=== PATIENT | female | born 1945 | race Caucasian/White ===

== ENCOUNTER 2018-01-04 17:48 | Observation (INO) | payer MEDICARE ==
[~2018-01-04] VITALS: Ht 152.4 cm; Wt 70.3 kg
[~2018-01-04 17:48] MED LIST: ASPIRIN325 MG PO; BACLOFEN10 MG PO; DEXILANT60 MG PO; DYCLONINE HCL5 GM PO; ESTRADIOL0.5 MG PO; ESTRADIOL2 MG PO; HYDROCODON-ACE1 EAC9 PO; LYRICA50 MG PO; MECLIZINE HCL12.5 MG PO; MELOXICAM7.5 MG PO; METOPROLOL TART25 MG PO; OMEPRAZOLE20 M1 PO; TIZANIDINE HCL4 MG PO; ULTRAM 50MG50 MG PO; ULTRAM50 MG PO; ZOFRAN ODT4 MG PO
[2018-01-04] MEDS ORDERED: ASPIRIN 81 MG CHEW TAB PO ONE (18:30)
[2018-01-04 18:58] LABS: BASOPHILS % 0.4 % (0.0-1.0); EOSINOPHILS # (AUTO) 0.2 (0.0-0.4); EOSINOPHILS % 3.2 % (0.0-6.0); HEMATOCRIT 34.1 % (34.2-44.1); HEMOGLOBIN 11.1 g/dL (12.0-16.0); LYMPHOCYTES # (AUTO) 2.3 (1.0-3.2); LYMPHOCYTES % 33.8 % (18.0-39.1); MEAN CORPUSCULAR HEMOGLOBIN 29.5 pg (28-32); MEAN CORPUSCULAR HGB CONC 32.6 g/dL (31-35); MEAN CORPUSCULAR VOLUME 90.7 fL (81-99); MONOCYTES # (AUTO) 0.5 (0.2-0.8); MONOCYTES % 7.7 % (4.4-11.3); NEUTROPHILS # (AUTO) 3.8 (2.1-6.9); NEUTROPHILS % 54.6 % (38.7-80.0); PLATELET COUNT 237 x10e3/uL (140-360); RED BLOOD COUNT 3.76 x10e6/uL (3.6-5.1); RED CELL DISTRIBUTION WIDTH 16.8 % (11.7-14.4)
[2018-01-04 19:04] LABS: INR 1.08; PROTHROMBIN TIME 13.2 seconds (11.9-14.5)
[2018-01-04 19:05] LABS: PARTIAL THROMBOPLASTIN TIME 28.1 seconds (23.8-35.5)
[2018-01-04 19:14] LABS: ALANINE AMINOTRANSFERASE 14 IU/L (0-55); ALBUMIN 3.4 g/dL (3.5-5.0); ALBUMIN/GLOBULIN RATIO 1.1 (0.8-2.0); ALKALINE PHOSPHATASE 78 IU/L (40-150); AMYLASE 29 U/L (25-125); ANION GAP 13.6 mmol/L (8-16); BLOOD UREA NITROGEN 10 mg/dL (7-26); BUN/CREATININE RATIO 15 (6-25); CALCIUM 9.5 mg/dL (8.4-10.2); CARBON DIOXIDE 23 mmol/L (22-29); CHLORIDE 107 mmol/L (98-107); CREATINE KINASE 76 IU/L (29-168); CREATININE, SERUM 0.65 mg/dL (0.57-1.11); EST GLOMERULAR FILTRATION RATE > 60 ML/MIN (60-); GLUCOSE 79 mg/dL (74-118); LIPASE 16 U/L (8-78); POTASSIUM 3.6 mmol/L (3.5-5.1); SODIUM 140 mmol/L (136-145)
--- NOTE | 2018-01-04 19:16 | Diagnostic Imaging Report ---
CHEST SINGLE (PORTABLE), 01/04/2018 6:14 PM Technique: CHEST SINGLE (PORTABLE) Comparison: 09/27/2016 Clinical history: Chest pain Findings: Limited by portable technique and soft tissue attenuation. Stable appearance of the heart, mediastinum, lungs and pleural spaces. Impression: 1. Lines/Tubes: None 2. No acute abnormality. Signed by: Dr Jacinda Rainey MD on 01/04/2018 7:13 PM
[2018-01-04 20:00] VITALS: BP 155/70
[2018-01-04 20:32] LABS: BILIRUBIN,URINE NEGATIVE (NEGATIVE); CLARITY,URINE HAZY (CLEAR); COLOR,URINE YELLOW (YELLOW); KETONES,URINE NEGATIVE (NEGATIVE); LEUKOCYTE ESTERASE ,URINE NEGATIVE (NEGATIVE); NITRITE,URINE NEGATIVE (NEGATIVE); PROTEIN,URINE DIPSTICK NEGATIVE (NEGATIVE); URINE UROBILINOGEN 0.2 mg/dL (0.2 - 1)
[2018-01-04 20:40] LABS: BACTERIA,URINE FEW /HPF; EPITHELIAL CELLS,URINE MODERATE /LPF; RBC,URINE 0-5 /HPF (0-5); WBC,URINE (MAN) 0-5 /HPF (0-5)
[2018-01-04 22:00] VITALS: BP 155/70
[2018-01-05] VITALS: BP 137/62
[2018-01-05 04:00] VITALS: BP 142/63
[2018-01-05] MEDS: ONDANSETRON HCL 4 MG ORAL DISINTEGRATING TAB PO ONE (04:07)
[2018-01-05 07:47] VITALS: BP 146/67
[2018-01-05] MEDS: ASPIRIN 81 MG ENTERIC COATED PO SCH (09:03)
[2018-01-05 11:31] VITALS: BP 189/80
[2018-01-05] MEDS ORDERED: METOPROLOL TARTRATE INJ 1 MG/ML VIAL IV ONE (13:00)
[2018-01-05 15:38] VITALS: BP 158/74
--- NOTE | 2018-01-05 16:47 | Consultation ---
DATE OF CONSULTATION: January 05, 2018 CARDIOLOGY CONSULTATION REQUESTING PHYSICIAN: Dr Salbador Biswas. REASON FOR CONSULTATION: Chest pain. HISTORY OF PRESENT ILLNESS: This is a 72-year-old woman with history of lupus as well as aortic stenosis, who presents with complaints of chest pain. She is unable to fully describe the chest discomfort but states she began having a different sensation in her chest yesterday around noon that was associated with lightheadedness and tingling in her hands. There was no shortness of breath, nausea, or diaphoresis. The discomfort lasted hours and was 5/10 in severity. She presented to the ER for further evaluation. REVIEW OF SYSTEMS: Negative except as per HPI. PAST MEDICAL HISTORY 1. Lupus. 2. Aortic stenosis. 3. Fibromyalgia. PAST SURGICAL HISTORY 1. Tonsillectomy. 2. Hysterectomy. 3. Appendectomy. 4. Cholecystectomy. 5. Right knee surgery. ALLERGIES: PLEASE SEE EMR. MEDICATIONS: Please see medication list. SOCIAL HISTORY: Denies tobacco, alcohol, or illicit drugs. FAMILY HISTORY: Noncontributory. PHYSICAL EXAMINATION VITALS: Temperature 96.8 degrees, pulse 69, respiratory rate 19, blood pressure 146/67, oxygen saturation 96% on room air. GENERAL: Elderly woman. No acute distress. Well developed, well nourished. Extensive healing ecchymosis across the left face. NECK: Supple. No thyromegaly or cervical lymphadenopathy. No carotid bruits. LUNGS: Clear to auscultation bilaterally. No wheezes or crackles. CARDIOVASCULAR: Normal rate. Regular rhythm. Systolic murmur III/ is noted at the upper sternal borders with radiation to the carotids. ABDOMEN: Soft, nontender. EXTREMITIES: No edema. NEUROLOGIC: Nonfocal exam. LABS: WBC 6.87, hemoglobin 11.1, hematocrit 34.1, platelets 237, sodium 140, potassium 3.6, chloride 107, CO2 23, BUN 10, creatinine 0.65, troponin 0.13. EKG: Marked sinus bradycardia; inferior infarct, age undetermined; cannot rule out anterior infarct, age undetermined; ST and T wave abnormality, consider a lateral ischemia. CHEST X-RAY: No acute abnormality. IMPRESSION 1. Chest pain. 2. Aortic stenosis. 3. Lupus. RECOMMENDATIONS: Trend cardiac enzymes to rule out myocardial infarction. We will obtain echocardiogram to severity of aortic stenosis, ischemic evaluation with nuclear stress test. Unfortunately, patient had caffeine this morning and will not be able to undergo pharmacologic stress testing until tomorrow. Due to recent fall, patient is not a good candidate for treadmill stress. If she is found to have severe aortic stenosis on echocardiogram, she will need cardiac catheterization instead, as concerned her chest pain and lightheadedness may be from symptomatic aortic stenosis. In the meantime, continue home cardiac medications, check orthostatic vitals. Thank you for this consult. We will continue to follow. Job#: [id number] LPA
[2018-01-05] MEDS ORDERED: CLONIDINE HCL 0.1 MG TAB PO PRN (19:15)
[2018-01-05 20:00] VITALS: BP 191/85
[2018-01-05] MEDS ORDERED: ONDANSETRON HCL INJ 2 MG/ML VIAL IV PRN (22:45)
[2018-01-06] VITALS (11 sets, daily range): BP systolic 119–160; BP diastolic 58–71
[2018-01-06] MEDS ORDERED: HEPARIN SOD/SOD CHLORIDE 2,000 ML ONE (07:23)
[2018-01-06] MEDS ORDERED: FENTANYL CITRATE/PF 100MCG/2 ML INJ ONE (07:23)
[2018-01-06] MEDS ORDERED: LIDOCAINE HCL 2% LOCAL 20 ML VIAL ONE (07:23)
[2018-01-06] MEDS ORDERED: VERAPAMIL HCL 2.5 MG/ML 2 ML VIAL ONE (07:23)
[2018-01-06] MEDS ORDERED: HEPARIN SOD (PORCINE) 1000 UNIT/ML 30ML ONE (07:23)
[2018-01-06] MEDS ORDERED: MIDAZOLAM HCL 2 MG/2 ML VIAL ONE (07:23)
[2018-01-06] MEDS ORDERED: SODIUM CHLORIDE 0.9% 1000ML 1,000 ML ONE (07:24)
[2018-01-06] MEDS ORDERED: IOPAMIDOL 370 MG/ML 200 ML INFUS..BTL INJ ONE (07:24)
[2018-01-06] MEDS ORDERED: NITROGLYCERIN/D5W 200 MCG/ML 250 ML ONE (07:24)
--- NOTE | 2018-01-06 09:26 | Operative Report ---
DATE OF PROCEDURE: January 06, 2018 PROCEDURE: Cardiac catheterization. INDICATIONS FOR PROCEDURE: Chest pain and aortic stenosis. PRE-SEDATION ASSESSMENT: Medical history, social history and previous experience with anesthesia was reviewed with the patient and documented in the preoperative medical record. Results of the relevant diagnostic studies were reviewed. Planned choice of anesthesia, risks, complications, benefits, and alternatives were discussed. The patient was deemed an appropriate candidate for moderate sedation. CONSENT: The benefits, risks, complications, and alternatives to the procedure were discussed with the patient and informed consent was obtained from prior to the procedure. MEDICATIONS: Please see nursing notes for medications administered during the procedure. PROCEDURE: The patient was brought to the cardiac catheterization laboratory in a fasting state. The right wrist was prepped and draped in a sterile fashion. One percent lidocaine was used to infiltrate the right wrist over the right radial artery. A 6-Lao sheath was placed in the right radial artery using the Seldinger technique. Coronary angiography was performed using a Perri and JR4 preformed diagnostic catheters. Multiple orthogonal views were obtained for each coronary artery. All catheters were removed over a guidewire. The access site was closed using a TR band. The case ended without any complications. Estimated blood loss was 20 mL. FINDINGS: Left main coronary artery is short and large caliber and normal. LAD is a large vessel and goes to the apex. No significant coronary artery disease. Left circumflex very large, codominant circumflex. Several large OM branches and distal posterolateral branches. Luminal irregularities only. RCA is codominant RCA. Medium sized RPDA distally. No significant coronary artery disease. COMPLICATIONS: None. SPECIMEN REMOVED: None. IMPLANTS: None. ESTIMATED BLOOD LOSS: 20 mL. RECOMMENDATIONS 1. Usual post cath care until TR band removal. 2. Continue optimal medical therapy and risk factor control. 3. Follow up in the office in 2 weeks post procedure. Thank you for this procedure consult. Job#: [id number] [place]
--- NOTE | 2018-01-06 10:04 | Progress Note ---
DATE: January 06, 2018 CARDIOLOGY PROGRESS NOTE SUBJECTIVE: No major events overnight. Had a cardiac cath done by me this morning, showed no significant coronary artery disease. REVIEW OF SYSTEMS: As above, otherwise negative. OBJECTIVE: VITAL SIGNS: Temperature 97.1, pulse 72, respiratory rate 18, blood pressure 137/61, satting 97% on room air. GENERAL: Thin, frail-appearing elderly female, in no acute distress. CARDIOVASCULAR: PMI nondisplaced, but sustained regular rate, normal rhythm. Normal S1, diminished S2. 2/6 systolic murmur radiating to the carotids. Weak carotid upstroke. Palpable radial pulses. Palpable femoral pulses. Palpable pedal pulses. No lower extremity edema or ulcerations. LUNGS: Clear to auscultation bilaterally. No respiratory distress. ABDOMEN: Soft, nontender, nondistended. No masses. NEURO AND PSYCH: Patient is alert and oriented to person, place, and time. Normal affect. LABORATORY DATA: Reviewed. CURRENT IN-PATIENT MEDICATIONS: Reviewed. IMAGING DATA: Reviewed. TELEMETRY DATA: Reviewed, shows normal sinus rhythm. ASSESSMENT AND PLAN: 1. Chest pain. 2. Aortic stenosis. 3. Lupus. 4. Malnutrition. RECOMMENDATIONS: Patient ruled out for myocardial infarction with serial cardiac enzymes and EKGs. Echocardiogram shows significant aortic stenosis. Cardiac catheterization done this morning as evaluation for coronary artery disease and planning for possible aortic valve replacement as well as for risk stratification of her chest pain, no significant coronary artery disease was found. Euvolemic from a cardiovascular standpoint. Will discuss with patient her options regarding aortic valve replacement. She will likely be a better candidate for transcatheter aortic valve replacement rather than surgical aortic valve replacement given her comorbidities and malnutrition. Thank you for this consult. Will continue to follow. Job#: [id number]
[2018-01-06] MEDS: ASPIRIN 81 MG ENTERIC COATED PO SCH (11:00)
== END 2018-01-06 18:02 | disposition home or self-care (01) ==
LOC: ER 17:48 → IMCU 19:58
PROVIDERS: ADMIT Internal Medicine; ATTEND Internal Medicine
DX: I35.0 Nonrheumatic aortic (valve) stenosis (principal); R07.89 Other chest pain; M32.9 Systemic lupus erythematosus, unspecified; I10 Essential (primary) hypertension; K21.9 Gastro-esophageal reflux disease without esophagitis; M79.7 Fibromyalgia; Z91.81 History of falling; E46 Unspecified protein-calorie malnutrition; Z82.49 Family history of ischemic heart disease and other diseases of the circulatory system
CPT/HCPCS: 36415 ×2; 71045; 80053; 81001; 82150; 82550; 82553; 83690; 83880; 84484 ×2; 85025; 85610; 85730; 87086; 93005; 93306; 93454; 99284; G0378 ×3; J1644; J2001; J2250; J2405; J7030; Q9967

== ENCOUNTER → 2018-04-09 | Day surgery (SDC) | payer MEDICARE ==
[2018-04-08 11:31] LABS: BASOPHILS % 0.7 % (0.0-1.0); EOSINOPHILS # (AUTO) 0.3 (0.0-0.4); EOSINOPHILS % 5.2 % (0.0-6.0); HEMATOCRIT 34.2 % (34.2-44.1); LYMPHOCYTES # (AUTO) 1.9 (1.0-3.2); LYMPHOCYTES % 30.9 % (18.0-39.1); MEAN CORPUSCULAR HEMOGLOBIN 29.1 pg (28-32); MEAN CORPUSCULAR HGB CONC 32.2 g/dL (31-35); MEAN CORPUSCULAR VOLUME 90.5 fL (81-99); MONOCYTES # (AUTO) 0.4 (0.2-0.8); MONOCYTES % 6.4 % (4.4-11.3); NEUTROPHILS # (AUTO) 3.5 (2.1-6.9); NEUTROPHILS % 56.6 % (38.7-80.0); PLATELET COUNT 250 x10e3/uL (140-360); RED BLOOD COUNT 3.78 x10e6/uL (3.6-5.1); RED CELL DISTRIBUTION WIDTH 13.7 % (11.7-14.4)
[2018-04-08 11:49] LABS: INR 0.92; PROTHROMBIN TIME 13.2 seconds (11.9-14.5)
[2018-04-08 11:59] LABS: ALANINE AMINOTRANSFERASE 14 IU/L (0-55); ALBUMIN 3.5 g/dL (3.5-5.0); ALKALINE PHOSPHATASE 83 IU/L (40-150); BLOOD UREA NITROGEN 14 mg/dL (7-26); BUN/CREATININE RATIO 19 (6-25); CALCIUM 9.7 mg/dL (8.4-10.2); CARBON DIOXIDE 24 mmol/L (22-29); CHLORIDE 104 mmol/L (98-107); CREATININE, SERUM 0.72 mg/dL (0.57-1.11); EST GLOMERULAR FILTRATION RATE > 60 ML/MIN (60-); GLUCOSE 122 mg/dL (74-118); SODIUM 138 mmol/L (136-145)
[~2018-04-09] VITALS: Ht 162.6 cm; Wt 68.0 kg
[2018-04-09] VITALS (7 sets, daily range): BP systolic 144–172; BP diastolic 64–86
[~2018-04-09] MED LIST changes: +BENZOCAINE 20% SPR 60 ML CAN ONE; +ETOMIDATE 2 MG/ML 10 ML INJ IV ONE; +FENTANYL CITRATE/PF 100MCG/2 ML INJ ONE; +IBUPROFEN200 MG PO; +KCL; +METOCLOPRAMIDE HCL 10 MG/2ML VIAL ONE; +SODIUM CHLORIDE 0.9% 1000ML 1,000 ML ONE; +[UNRECOGNIZED DRUG - OTHER]
== END | disposition home or self-care (01) ==
LOC: CATH LAB 09:39
PROVIDERS: ATTEND Internal Medicine
DX: I35.0 Nonrheumatic aortic (valve) stenosis (principal); I35.1 Nonrheumatic aortic (valve) insufficiency; I10 Essential (primary) hypertension; R00.2 Palpitations; M32.9 Systemic lupus erythematosus, unspecified; M79.7 Fibromyalgia; G89.29 Other chronic pain; Z88.1 Allergy status to other antibiotic agents; Z01.812 Encounter for preprocedural laboratory examination; Z79.82 Long term (current) use of aspirin; Z82.49 Family history of ischemic heart disease and other diseases of the circulatory system
CPT/HCPCS: 36415; 80053; 85025; 85610; 93312; 93320; 93325; J2765; J7030

== ENCOUNTER 2019-04-05 11:02 | Observation (INO) | payer MEDICARE ==
[~2019-04-05] VITALS: Ht 149.9 cm; Wt 68.0 kg
[~2019-04-05 11:02] MED LIST changes: -BENZOCAINE 20% SPR 60 ML CAN ONE; -ETOMIDATE 2 MG/ML 10 ML INJ IV ONE; -FENTANYL CITRATE/PF 100MCG/2 ML INJ ONE; -METOCLOPRAMIDE HCL 10 MG/2ML VIAL ONE; -SODIUM CHLORIDE 0.9% 1000ML 1,000 ML ONE
[2019-04-05] MEDS ORDERED: SODIUM CHLORIDE 0.9% 1000ML 1,000 ML IV STA (11:35)
[2019-04-05 12:21] LABS: BASOPHILS % 0.2 % (0.0-1.0); EOSINOPHILS # (AUTO) 0.1 (0.0-0.4); EOSINOPHILS % 0.3 % (0.0-6.0); LYMPHOCYTES # (AUTO) 0.9 (1.0-3.2); LYMPHOCYTES % 5.1 % (18.0-39.1); MEAN CORPUSCULAR HEMOGLOBIN 28.1 pg (28-32); MEAN CORPUSCULAR HGB CONC 32.4 g/dL (31-35); MEAN CORPUSCULAR VOLUME 86.7 fL (81-99); MONOCYTES # (AUTO) 0.9 (0.2-0.8); NEUTROPHILS % 88.2 % (38.7-80.0); PLATELET COUNT 242 x10e3/uL (140-360); RED BLOOD COUNT 3.92 x10e6/uL (3.6-5.1); RED CELL DISTRIBUTION WIDTH 17.1 % (11.7-14.4)
[2019-04-05 12:32] LABS: INR 1.05; PARTIAL THROMBOPLASTIN TIME 32.6 seconds (23.8-35.5); PROTHROMBIN TIME 14.2 seconds (11.9-14.5)
--- NOTE | 2019-04-05 12:39 | Diagnostic Imaging Report ---
CT BRAIN WO HISTORY: Fall COMPARISON: Report from head CT dated 09/27/2016 Technique: Noncontrast axial scans were obtained from skull base to the vertex. Coronal and sagittal reconstructions obtained from the axial data. One or more of the following dose reduction techniques were used: Automated exposure control, adjustment of the mA and/or kV according to patient size, and/or utilization of iterative reconstruction technique. Beam hardening artifacts obscure some details. DISCUSSION: Scalp/Skull: Unremarkable. Brain sulci: Mildly prominent. Ventricles: Compensatory dilatation. Extra-axial spaces: No masses or fluid collections. Carotid siphon calcifications are present. Parenchyma: Moderate bilateral deep white matter hypodensity is likely chronic microvascular ischemic change. Otherwise, no masses, hemorrhage, or large vascular territory acute infarct. Dural sinuses: No abnormal densities. Sellar/Suprasellar region: Intact. Skull base: Intact. Incidental findings: None. IMPRESSION: 1. No acute intracranial abnormalities. 2. Moderate supratentorial chronic microvascular ischemic change. Mild generalized cerebral volume loss. Signed by: Dr. Wily Ruffin M.D. on 04/05/2019 12:36 PM
[2019-04-05 12:42] LABS: ALANINE AMINOTRANSFERASE 13 IU/L (0-55); ALBUMIN 3.2 g/dL (3.5-5.0); ALBUMIN/GLOBULIN RATIO 0.9 (0.8-2.0); ALKALINE PHOSPHATASE 82 IU/L (40-150); ANION GAP 16.3 mmol/L (8-16); BLOOD UREA NITROGEN 26 mg/dL (7-26); BUN/CREATININE RATIO 30 (6-25); CALCIUM 9.7 mg/dL (8.4-10.2); CARBON DIOXIDE 23 mmol/L (22-29); CHLORIDE 95 mmol/L (98-107); CREATINE KINASE 113 IU/L (29-168); CREATININE, SERUM 0.88 mg/dL (0.57-1.11); EST GLOMERULAR FILTRATION RATE > 60 ML/MIN (60-); GLUCOSE 114 mg/dL (74-118); MAGNESIUM 1.9 MG/DL (1.3-2.1); POTASSIUM 3.3 mmol/L (3.5-5.1); SODIUM 131 mmol/L (136-145)
--- NOTE | 2019-04-05 12:45 | Diagnostic Imaging Report ---
CT CERVICAL SPINE WO HISTORY: Fall COMPARISON: Concurrent head CT TECHNIQUE: CT of the cervical spine without contrast. Sagittal and coronal reformations were created. One or more of the following dose reduction techniques were used: Automated exposure control, adjustment of the mA and/or kV according to patient size, and/or utilization of iterative reconstruction technique. FINDINGS: Mild bone demineralization limits osseous evaluation. Cervical lordosis is preserved. There is no significant scoliosis. No definite acute fracture or compression deformity is seen. The craniocervical junction is intact. No gross spinal canal masses are seen. The paravertebral and paraspinal soft tissues are unremarkable. Degenerative changes: Mild to moderate multilevel spondylosis is present. Multilevel bilateral facet arthrosis is most prominent on the left C3-C4 and C4-C5; there is associated grade 1 anterolisthesis of C6 on C7. Incidental findings: There is nonspecific mild mosaic attenuation in the lung apices. IMPRESSION: No acute osseous abnormalities. Degenerative changes as described above. Signed by: Dr. Wily Ruffin M.D. on 04/05/2019 12:41 PM
--- NOTE | 2019-04-05 12:59 | Diagnostic Imaging Report ---
AP view the pelvis Clinical indications: Fall, pain Comparison: None Findings: 2 AP radiographs of the pelvis were obtained. There is no radiographic evidence of acute fracture or dislocation. Mild narrowing of the bilateral hip joints. Calcified densities overlying the pelvis are likely phleboliths. Impression: No radiographic evidence of acute fracture or dislocation. Signed by: Prabhjot Chen MD on 04/05/2019 12:55 PM
--- NOTE | 2019-04-05 13:01 | Diagnostic Imaging Report ---
Chest, portable AP view History: All, pain Comparison: 01/04/2018 IMPRESSION: The heart is within normal limits size. The mediastinal and hilar contours are unremarkable. No focal consolidation, sizable pleural effusion, pneumothorax, or acute osseous abnormality. Signed by: Prabhjot Chen MD on 04/05/2019 12:57 PM
--- NOTE | 2019-04-05 13:02 | NUR ---
Patient is on Purewick per patient's request
[2019-04-05 13:10] LABS: B-TYPE NATRIURETIC PEPTIDE2 133.9 pg/mL (0-100)
[2019-04-05 14:30] LABS: BILIRUBIN,URINE NEGATIVE (NEGATIVE); KETONES,URINE TRACE (NEGATIVE); NITRITE,URINE POSITIVE (NEGATIVE); PROTEIN,URINE DIPSTICK 2+ (NEGATIVE); URINE UROBILINOGEN 0.2 mg/dL (0.2 - 1)
[2019-04-05 14:31] LABS: CLARITY,URINE SL CLOUDY (CLEAR); COLOR,URINE YELLOW (YELLOW); LEUKOCYTE ESTERASE ,URINE NEGATIVE (NEGATIVE)
[2019-04-05 14:45] LABS: BACTERIA,URINE MANY /HPF; EPITHELIAL CELLS,URINE MANY /LPF; TRANSITIONAL EPI CELLS,URINE MODERATE; WBC,URINE (MAN) 0-5 /HPF (0-5)
[2019-04-05] MEDS ORDERED: ONDANSETRON HCL INJ 2MG/ML 2ML 2 MG/ML VIAL IV PRN (14:45)
[2019-04-05] MEDS ORDERED: SODIUM CHLORIDE 0.9% 500ML 500 ML IV ONE (14:45)
[2019-04-05] MEDS: CEFTRIAXONE SOD 1 GM/NS 50 ML 50 ML IV SCH (16:35)
[2019-04-05] MEDS: SODIUM CHLORIDE 0.9% 1000ML 1,000 ML IV SCH ×2 (17:59→23:33)
[2019-04-05 20:13] LABS: CREATINE KINASE MB 0.9 ng/mL (0-5.0)
--- NOTE | 2019-04-05 21:36 | NUR ---
Received patient from ER, alert, with IV access to bilateral AC 18g, rat bite noted on the patient's nose per report, ecchymosis to the left ear and multiple bruising with different color and stages, redness to the groin, ki area and buttocks noted. Cleaned patient with warm wipes and hooked to purewick per request. Call light within easy reach, advised to call for assistance anytime. Will continue to monitor closely
[2019-04-05 21:40] VITALS: BP 136/52
[2019-04-05 22:00] VITALS: BP 136/52
[2019-04-06] MEDS: CEFTRIAXONE SOD 1 GM/NS 50 ML 50 ML IV SCH ×2 (02:17→14:30)
[2019-04-06 05:28] LABS: BASOPHILS % 0.1 % (0.0-1.0); EOSINOPHILS # (AUTO) 0.1 (0.0-0.4); EOSINOPHILS % 0.4 % (0.0-6.0); HEMATOCRIT 26.2 % (34.2-44.1); HEMOGLOBIN 8.1 g/dL (12.0-16.0); LYMPHOCYTES # (AUTO) 1.3 (1.0-3.2); LYMPHOCYTES % 11.4 % (18.0-39.1); MEAN CORPUSCULAR HEMOGLOBIN 27.5 pg (28-32); MEAN CORPUSCULAR HGB CONC 30.9 g/dL (31-35); MEAN CORPUSCULAR VOLUME 88.8 fL (81-99); MONOCYTES # (AUTO) 0.8 (0.2-0.8); MONOCYTES % 6.6 % (4.4-11.3); NEUTROPHILS # (AUTO) 9.3 (2.1-6.9); NEUTROPHILS % 80.2 % (38.7-80.0); PLATELET COUNT 188 x10e3/uL (140-360); RED BLOOD COUNT 2.95 x10e6/uL (3.6-5.1); RED CELL DISTRIBUTION WIDTH 17.1 % (11.7-14.4)
[2019-04-06 05:49] LABS: ALANINE AMINOTRANSFERASE 10 IU/L (0-55); ALBUMIN 2.4 g/dL (3.5-5.0); ALBUMIN/GLOBULIN RATIO 0.9 (0.8-2.0); ALKALINE PHOSPHATASE 69 IU/L (40-150); ANION GAP 12.2 mmol/L (8-16); BLOOD UREA NITROGEN 13 mg/dL (7-26); BUN/CREATININE RATIO 21 (6-25); CALCIUM 8.3 mg/dL (8.4-10.2); CARBON DIOXIDE 21 mmol/L (22-29); CHLORIDE 105 mmol/L (98-107); CREATININE, SERUM 0.61 mg/dL (0.57-1.11); EST GLOMERULAR FILTRATION RATE > 60 ML/MIN (60-); GLUCOSE 89 mg/dL (74-118); POTASSIUM 3.2 mmol/L (3.5-5.1); SODIUM 135 mmol/L (136-145)
[2019-04-06] MEDS: PANTOPRAZOLE SOD 40 MG TABEC PO SCH (05:54)
[2019-04-06 06:38] LABS: CREATINE KINASE MB 0.7 ng/mL (0-5.0)
--- NOTE | 2019-04-06 07:10 | NUR ---
Received patient lying in bed with eyes open. Respiration even and unlabored without SOB. Call light in reach.
[2019-04-06] MEDS ORDERED: LISINOPRIL10 MG PO (07:16)
[2019-04-06] MEDS ORDERED: AMIODARONE HCL200 MG PO (07:16)
[2019-04-06 08:03] VITALS: BP 128/61
[2019-04-06] MEDS: METOPROLOL TARTRATE 25 MG TAB PO SCH ×2 (08:33→16:57)
[2019-04-06] MEDS: ASPIRIN 325 MG TAB PO SCH (08:33)
[2019-04-06] MEDS: PREGABALIN 50 MG CAP PO SCH ×4 (08:34→18:18)
[2019-04-06 09:45] VITALS: BP 128/61
--- NOTE | 2019-04-06 10:17 | NUR ---
Paged Dr. Biswas. States okay to have PT eval.
[2019-04-06 12:00] VITALS: BP 112/57
[2019-04-06] MEDS: KETOROLAC TROMETHAMINE 30 MG/ML VIAL IM PRN ×2 (13:16→21:17)
--- NOTE | 2019-04-06 15:10 | NUR ---
Visit made by the Spiritual Care Department Pastoral Visitor, Vinita Mueller. PV provided pastoral presence, prayer, hospitality, and supportive listening. Pastoral Visitor informed pt/family of the scope of Director Internal Audit Services and availability. NEFTALI DONALDSON [employer] Spiritual Care Department O: [phone] Pager: [phone] ([phone] number calling from)
[2019-04-06 16:00] VITALS: BP 136/62
[2019-04-06] MEDS ORDERED: ACETAMINOPHEN 325 MG TAB PO PRN (18:45)
[2019-04-06] MEDS: POTASSIUM CHLORIDE 20 MEQ TAB CR PO SCH (18:53)
--- NOTE | 2019-04-06 18:55 | NUR ---
Report given to rn shift mgr. Respiration even and unlabored without SOB. Call light in reach.
[2019-04-06 19:24] VITALS: BP 136/62
[2019-04-06 20:00] VITALS: BP 141/59
[2019-04-07] VITALS: BP 150/64
[2019-04-07 00:05] VITALS: BP 141/59
[2019-04-07] MEDS: CEFTRIAXONE SOD 1 GM/NS 50 ML 50 ML IV SCH (02:15)
[2019-04-07 04:00] VITALS: BP 139/63
[2019-04-07] MEDS: PANTOPRAZOLE SOD 40 MG TABEC PO SCH (05:00)
[2019-04-07] MEDS: KETOROLAC TROMETHAMINE 30 MG/ML VIAL IM PRN (05:06)
[2019-04-07 05:34] LABS: BASOPHILS % 0.5 % (0.0-1.0); EOSINOPHILS # (AUTO) 0.4 (0.0-0.4); HEMATOCRIT 28.4 % (34.2-44.1); LYMPHOCYTES # (AUTO) 1.3 (1.0-3.2); LYMPHOCYTES % 16.9 % (18.0-39.1); MEAN CORPUSCULAR HEMOGLOBIN 27.7 pg (28-32); MEAN CORPUSCULAR HGB CONC 31.7 g/dL (31-35); MEAN CORPUSCULAR VOLUME 87.4 fL (81-99); MONOCYTES # (AUTO) 0.5 (0.2-0.8); MONOCYTES % 6.7 % (4.4-11.3); NEUTROPHILS # (AUTO) 5.3 (2.1-6.9); NEUTROPHILS % 70.2 % (38.7-80.0); PLATELET COUNT 211 x10e3/uL (140-360); RED BLOOD COUNT 3.25 x10e6/uL (3.6-5.1); RED CELL DISTRIBUTION WIDTH 16.7 % (11.7-14.4)
[2019-04-07 06:10] LABS: ALANINE AMINOTRANSFERASE 9 IU/L (0-55); ALBUMIN 2.5 g/dL (3.5-5.0); ALBUMIN/GLOBULIN RATIO 0.8 (0.8-2.0); ALKALINE PHOSPHATASE 61 IU/L (40-150); ANION GAP 11.7 mmol/L (8-16); BLOOD UREA NITROGEN 18 mg/dL (7-26); BUN/CREATININE RATIO 28 (6-25); CALCIUM 8.6 mg/dL (8.4-10.2); CARBON DIOXIDE 21 mmol/L (22-29); CHLORIDE 107 mmol/L (98-107); CREATININE, SERUM 0.64 mg/dL (0.57-1.11); EST GLOMERULAR FILTRATION RATE > 60 ML/MIN (60-); GLUCOSE 86 mg/dL (74-118); POTASSIUM 3.7 mmol/L (3.5-5.1); SODIUM 136 mmol/L (136-145)
[2019-04-07 07:47] VITALS: BP 132/58
[2019-04-07 08:55] VITALS: BP 132/58
[2019-04-07] MEDS: PREGABALIN 50 MG CAP PO SCH ×2 (09:00→09:25)
--- NOTE | 2019-04-07 09:02 | NUR ---
PT recommending home health. CM received order from Dr. Biswas to set up home health if pt is agreeable. CM spoke to pt at bedside. Pt states she doesn't want home health at this time. States her son is available to assist her if needed. CM informed her that her PCP can also set up home health for her if she feels like she needs it at a later time. Pt verbalized understanding. CM business card left with pt for any questions/concerns.
[2019-04-07] MEDS: ASPIRIN 325 MG TAB PO SCH (09:24)
[2019-04-07] MEDS: METOPROLOL TARTRATE 25 MG TAB PO SCH (09:25)
[2019-04-07] MEDS: POTASSIUM CHLORIDE 20 MEQ TAB CR PO SCH (09:25)
[2019-04-07] MEDS ORDERED: MACRODANTIN100 MG PO (14:24)
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
== END 2019-04-07 15:00 | disposition home or self-care (01) ==
LOC: ER 11:02 → ERHOLD 15:01 → MED/SURG2 22:01
PROVIDERS: ADMIT Internal Medicine; ATTEND Internal Medicine
DX: N39.0 Urinary tract infection, site not specified (principal); M32.9 Systemic lupus erythematosus, unspecified; I10 Essential (primary) hypertension; E66.9 Obesity, unspecified; Z68.30 Body mass index [BMI] 30.0-30.9, adult
CPT/HCPCS: 36415 ×3; 70450; 71045; 72125; 72170; 80053 ×3; 81001; 82550 ×2; 82553 ×2; 83605; 83735 ×2; 83880; 84484 ×2; 85025 ×3; 85610; 85730; 87040; 87071; 87086; 87186; 87205; 87400; 93005; 97116 ×2; 97139 ×2; 97162; 99285; G0378 ×3; J0696 ×3; J1885 ×2; J7030; S0164 ×2

== ENCOUNTER 2020-01-04 16:28 | Emergency (ER) | payer MEDICARE ==
[~2020-01-04] VITALS: Ht 271.8 cm; Wt 68.0 kg
[~2020-01-04 16:28] MED LIST changes: +AMIODARONE HCL200 MG PO; +LISINOPRIL10 MG PO; +MACRODANTIN100 MG PO
[2020-01-04] MEDS ORDERED: SODIUM CHLORIDE 0.9% 1000ML 1,000 ML IV STA (16:53)
[2020-01-04 17:04] LABS: BASOPHILS % 0.8 % (0.0-1.0); EOSINOPHILS # (AUTO) 0.2 (0.0-0.4); EOSINOPHILS % 3.3 % (0.0-6.0); HEMATOCRIT 29.9 % (34.2-44.1); LYMPHOCYTES # (AUTO) 1.3 (1.0-3.2); LYMPHOCYTES % 25.8 % (18.0-39.1); MEAN CORPUSCULAR HEMOGLOBIN 24.8 pg (28-32); MEAN CORPUSCULAR HGB CONC 30.1 g/dL (31-35); MEAN CORPUSCULAR VOLUME 82.4 fL (81-99); MONOCYTES # (AUTO) 0.4 (0.2-0.8); MONOCYTES % 8.5 % (4.4-11.3); NEUTROPHILS # (AUTO) 3.2 (2.1-6.9); NEUTROPHILS % 61.4 % (38.7-80.0); PLATELET COUNT 221 x10e3/uL (140-360); RED BLOOD COUNT 3.63 x10e6/uL (3.6-5.1); RED CELL DISTRIBUTION WIDTH 20.2 % (11.7-14.4)
[2020-01-04 17:07] LABS: INR 0.94
[2020-01-04 17:08] LABS: PARTIAL THROMBOPLASTIN TIME 28.4 seconds (23.8-35.5)
[2020-01-04 17:16] LABS: BILIRUBIN,URINE NEGATIVE (NEGATIVE); CLARITY,URINE CLEAR (CLEAR); COLOR,URINE YELLOW (YELLOW); KETONES,URINE NEGATIVE (NEGATIVE); LEUKOCYTE ESTERASE ,URINE NEGATIVE (NEGATIVE); NITRITE,URINE NEGATIVE (NEGATIVE); PROTEIN,URINE DIPSTICK NEGATIVE (NEGATIVE); URINE UROBILINOGEN 0.2 mg/dL (0.2 - 1)
[2020-01-04 17:17] LABS: ALANINE AMINOTRANSFERASE 18 IU/L (0-55); ALBUMIN 4.2 g/dL (3.5-5.0); ALBUMIN/GLOBULIN RATIO 1.5 (0.8-2.0); ALKALINE PHOSPHATASE 66 IU/L (40-150); ANION GAP 17.1 mmol/L (8-16); BLOOD UREA NITROGEN 8 mg/dL (7-26); BUN/CREATININE RATIO 10 (6-25); CALCIUM 8.8 mg/dL (8.4-10.2); CARBON DIOXIDE 17 mmol/L (22-29); CHLORIDE 108 mmol/L (98-107); CREATINE KINASE 105 IU/L (29-168); CREATININE, SERUM 0.82 mg/dL (0.57-1.11); EST GLOMERULAR FILTRATION RATE > 60 ML/MIN (60-); GLUCOSE 80 mg/dL (74-118); POTASSIUM 4.1 mmol/L (3.5-5.1); SODIUM 138 mmol/L (136-145)
[2020-01-04 17:30] LABS: BACTERIA,URINE RARE /HPF; WBC,URINE (MAN) 0-5 /HPF (0-5)
--- NOTE | 2020-01-04 17:38 | Diagnostic Imaging Report ---
History: Confusion Comparison studies: Head CT on 04/05/2019 Technique: Axial images were obtained from the skull base to the vertex. Coronal and sagittal images reconstructed from the axial data. Dose modulation, iterative reconstruction, and/or weight based adjustment of the mA/kV was utilized to reduce the radiation dose to as low as reasonably achievable. Intravenous contrast: None Findings: Scalp/skull: No abnormalities. Extra-axial spaces: No masses. No fluid collections. Brain sulci: Mildly prominent. Ventricles: Mild compensatory dilatation. No hydrocephalus. Parenchyma: Confluent hypodensities in the supratentorial white matter are small vessel ischemic changes. No masses, hemorrhage, acute or chronic cortical vascular insults. Sellar/suprasellar region: No abnormalities. Craniocervical junction: Patent foramen magnum. No Chiari one malformation. Incidental findings: Subtle calcifications in the carotid siphons . Impression: No acute intracranial abnormalities. No changes when compared to the head CT on 04/05/2019 Chronic findings: 1. Mild generalized volume loss. 2. Moderate supratentorial white matter small vessel ischemic changes. Signed by: Dr. Julian Odell M.D. on 01/04/2020 5:35 PM
--- NOTE | 2020-01-04 17:53 | Emergency Department Note ---
History of Present Illnes History of Present Illness Chief Complaint: General Medicine Complaints History of Present Illness This is a 74 year old female Pt aaox4. From home. Son told ems pt was confused earlier today. Pt completely aware of all surrounding and past events from today. Pt gave detailed information about Dr. Biswas's weekly schedules. H/O FIBROMYALGIA, TAKES A LOT OF MEDS Historian: Patient, Device Repair Technician/EMS Arrival Mode: [facility] Treatment CONSOLE ATTENDANT: See EMS Report Senior Director Finance Required: No Onset (how long ago): hour(s) Radiation: Reports non-radiation Severity: mild Onset quality: sudden Timing of current episode: sporadic Progression: resolved Chronicity: recurrent Context: Denies recent illness Relieving factors: none Exacerbating factors: none Associated symptoms: Reports denies other symptoms Treatments prior to arrival: none Past Medical/Family History Physician Review I have reviewed the patient's past medical and family history. Any updates have been documented here. Past Medical History Recent Fever: No Clinical Suspicion of Infectio: No New/Unexplained Change in Ment: No Past Medical History: Hypertension, CHF, GERD, Lupus Other Medical History: fibromyalgia, aortic stenosis, hiatal hernia Past Surgical History: Cholecysctectomy Other Surgery: right knee surgery Social History Smoking Cessation: Unknown if ever smoked Counseling Performed: No Alcohol Use: None Any Illegal Drug Use: No TB Exposure/Symptoms: No Physically hurt or threatened: No Other Last Tetanus: UTD Any Pre-Existing Lines (PICC,: No Review of Systems Review of Systems Constitutional: Reports no symptoms EENTM: Reports no symptoms Cardiovascular: Reports no symptoms Respiratory: Reports no symptoms Gastrointestinal: Reports no symptoms Genitourinary: Reports no symptoms Musculoskeletal: Reports no symptoms Integumentary: Reports no symptoms Neurological: Reports as per HPI Psychological: Reports no symptoms Endocrine: Reports no symptoms Hematological/Lymphatic: Reports no symptoms Physical Exam Related Data Allergies: Coded Allergies: levofloxacin (Verified Allergy, Intermediate, FACIAL RASH / ITCHING, 01/04/18) Triage Vital Signs Vital Signs Date Time Temp Pulse Resp B/P (MAP) Pulse Ox O2 Delivery O2 Flow Rate FiO2 01/04/20 16:47 98.4 43 12 188/52 98 Room Air Vital signs reviewed: Yes Physical Exam CONSTITUTIONAL Constitutional: Present other (DISSHEVELED) HENT HENT: Present normocephalic, Present atraumatic, Present oropharynx clear/moist, Present nose normal HENT L/R: Present left ext ear normal, Present right ext ear normal EYES Eyes: Reports PERRL, Reports conjunctivae normal NECK Neck: Present ROM normal PULMONARY Pulmonary: Present effort normal, Present breath sounds normal CARDIOVASCULAR Cardiovascular: Present regular rhythm, Present heart sounds normal, Present capillary refill normal, Present normal rate GASTROINTESTINAL Abdominal: Present soft, Present nontender, Present bowel sounds normal GENITOURINARY Genitourinary: Present exam deferred SKIN Skin: Present warm, Present dry MUSCULOSKELETAL Musculoskeletal: Present ROM normal NEUROLOGICAL Neurological: Present alert, Present oriented x 3, Present DTRs normal, Present no gross motor or sensory deficits; Absent cranial nerve deficit, Absent sensory deficit, Absent weakness PSYCHOLOGICAL Psychological: Present mood/affect normal, Present judgement normal Results Laboratory Result Diagram: 01/04/20 1640 01/04/20 1640 Laboratory Laboratory Tests Test 01/04/20 17:03 01/04/20 16:40 Urine Color Yellow (YELLOW) Urine Clarity Clear (CLEAR) Urine pH 6 (5 - 7) Urine Specific [place] 1.015 (1.010-1.025) Urine Protein Negative (NEGATIVE) Urine Glucose (UA) Negative (NEGATIVE) Urine Ketones Negative (NEGATIVE) Urine Blood Negative (NEGATIVE) Urine Nitrite Negative (NEGATIVE) Urine Bilirubin Negative (NEGATIVE) Urine Urobilinogen 0.2 mg/dL (0.2 - 1) Urine Leukocyte Esterase Negative (NEGATIVE) Urine RBC None /HPF (0-5) Urine WBC 0-5 /HPF (0-5) Urine Epithelial Cells None /LPF (NONE) Urine Bacteria Rare /HPF (NONE) White Blood Count 5.20 x10e3/uL (4.8-10.8) Red Blood Count 3.63 x10e6/uL (3.6-5.1) Hemoglobin 9.0 g/dL (12.0-16.0) Hematocrit 29.9 % (34.2-44.1) Mean Corpuscular Volume 82.4 fL (81-99) Mean Corpuscular Hemoglobin 24.8 pg (28-32) Mean Corpuscular Hemoglobin Concent 30.1 g/dL (31-35) Red Cell Distribution Width 20.2 % (11.7-14.4) Platelet Count 221 x10e3/uL (140-360) Neutrophils (%) (Auto) 61.4 % (38.7-80.0) Lymphocytes (%) (Auto) 25.8 % (18.0-39.1) Monocytes (%) (Auto) 8.5 % (4.4-11.3) Eosinophils (%) (Auto) 3.3 % (0.0-6.0) Basophils (%) (Auto) 0.8 % (0.0-1.0) Neutrophils # (Auto) 3.2 (2.1-6.9) Lymphocytes # (Auto) 1.3 (1.0-3.2) Monocytes # (Auto) 0.4 (0.2-0.8) Eosinophils # (Auto) 0.2 (0.0-0.4) Basophils # (Auto) 0.0 (0.0-0.1) Absolute Immature Granulocyte (auto 0.01 x10e3/uL (0-0.1) Prothrombin Time 13.0 seconds (11.9-14.5) Prothromb Time International Ratio 0.94 Activated Partial Thromboplast Time 28.4 seconds (23.8-35.5) Sodium Level 138 mmol/L (136-145) Potassium Level 4.1 mmol/L (3.5-5.1) Chloride Level 108 mmol/L (98-107) Carbon Dioxide Level 17 mmol/L (22-29) Anion Gap 17.1 mmol/L (8-16) Blood Urea Nitrogen 8 mg/dL (7-26) Creatinine 0.82 mg/dL (0.57-1.11) Estimat Glomerular Filtration Rate > 60 ML/MIN (60-) BUN/Creatinine Ratio 10 (6-25) Glucose Level 80 mg/dL (74-118) Calcium Level 8.8 mg/dL (8.4-10.2) Total Bilirubin 0.3 mg/dL (0.2-1.2) Aspartate Amino Transf (AST/SGOT) 28 IU/L (5-34) Alanine Aminotransferase (ALT/SGPT) 18 IU/L (0-55) Alkaline Phosphatase 66 IU/L (40-150) Creatine Kinase 105 IU/L (29-168) Creatine Kinase MB 1.90 ng/mL (0-5.0) Troponin I 0.002 ng/mL (0-0.300) Total Protein 7.0 g/dL (6.5-8.1) Albumin 4.2 g/dL (3.5-5.0) Globulin 2.8 g/dL (2.3-3.5) Albumin/Globulin Ratio 1.5 (0.8-2.0) Lab results reviewed: Yes Imaging Imaging results reviewed: Yes Impressions History: Confusion Comparison studies: Head CT on 04/05/2019 Technique: Axial images were obtained from the skull base to the vertex. Coronal and sagittal images reconstructed from the axial data. Dose modulation, iterative reconstruction, and/or weight based adjustment of the mA/kV was utilized to reduce the radiation dose to as low as reasonably achievable. Intravenous contrast: None Findings: Scalp/skull: No abnormalities. Extra-axial spaces: No masses. No fluid collections. Brain sulci: Mildly prominent. Ventricles: Mild compensatory dilatation. No hydrocephalus. Parenchyma: Confluent hypodensities in the supratentorial white matter are small vessel ischemic changes. No masses, hemorrhage, acute or chronic cortical vascular insults. Sellar/suprasellar region: No abnormalities. Craniocervical junction: Patent foramen magnum. No Chiari one malformation. Incidental findings: Subtle calcifications in the carotid siphons . Impression: No acute intracranial abnormalities. No changes when compared to the head CT on 04/05/2019 Chronic findings: 1. Mild generalized volume loss. 2. Moderate supratentorial white matter small vessel ischemic changes. Signed by: Dr. Julian Odell M.D. on 01/04/2020 5:35 PM Procedures 12 Lead ECG Interpretation ECG Interpretation : ECG: ECG 1 Senior Director Finance: Interpreted by ED physician Date: Jan 04, 2020 Time: 16:36 Rhythm: sinus bradycardia Rate: bradycardia (45) QRS axis: left ST segments normal: Yes T wave inversion: III T waves flattening: aVF, V3, V4 Clinical Impression: abnormal ECG Assessment & Plan Medical Decision Making MDM REPORTED AMS, PT COMPLETELY NORMAL HERE, NORMAL NEURO EXAM - CHECK CBC, CHEM, UA/CX, ECG, CARDIACS, CT BRAIN - R/O CVA, UTI, ELECTROLYTE ABNL, RENAL INSUFF, STEMI/NSTEMI Reassessment Reassessment PT WANTS TO GO HOME, DC HOME, F/U PCP JESSICA TOMORROW, PUSH PO FLUIDS Assessment & Plan Final Impression: (1) Confusion Depart Disposition: HOME, SELF-CARE Last Vital Signs Date Time Temp Pulse Resp B/P (MAP) Pulse Ox O2 Delivery O2 Flow Rate FiO2 01/04/20 16:47 98.4 43 12 188/52 98 Room Air Home Meds Reported Medications Nitrofurantoin Macrocrystal (MACRODANTIN) 100 Mg Capsule, 100 MG PO BID, CAP 04/07/19 Lisinopril (LISINOPRIL) 10 Mg Tablet, 10 MG PO DAILY, #30 TAB 04/06/19 Amiodarone Hcl (AMIODARONE HCL) 200 Mg Tablet, 200 MG PO DAILY 04/06/19 [kcl er] No Conflict Check, 20 DAILY 04/09/18 [vitamen E] No Conflict Check, 1000 04/09/18 Ibuprofen (IBUPROFEN) 200 Mg Capsule, 600 MG PO BID for pain, TAB 04/09/18 Tramadol Hcl (ULTRAM) 50 Mg Tablet, 100 MG PO Q12H PRN for PAIN, TAB 09/28/16 Pregabalin (LYRICA) 50 Mg Cap, 100 MG PO BID for pain, #30 TAB 09/28/16 Dyclonine Hcl (DYCLONINE HCL) 5 Gm Powder, 10 MG PO TID PRN for ABDOMINAL PAIN, #2 09/28/16 Baclofen (BACLOFEN) 10 Mg Tablet, 10 MG PO TID for muscle relaxation, #90 TAB 03/02/14 Ondansetron (ZOFRAN ODT) 4 Mg Tab.rapdis, 4 MG PO Q6H for nausea prn, TAB 03/02/14 Meloxicam (MELOXICAM) 7.5 Mg Tablet, 15 MG PO DAILY for pain, #30 TAB 03/02/14 Aspirin (ASPIRIN) 325 Mg Tablet, 650 MG PO DAILY for pain, #1 TAB 02/06/14 Omeprazole (OMEPRAZOLE) 20 Mg Tablet.dr, 1 TAB PO RDAILY for stomach acid 08/25/13 Metoprolol Tartrate (METOPROLOL TARTRATE) 25 Mg Tablet, 100 MG PO BID for bp control 08/25/13 Medications in the ED Sodium Chloride 1,000 ml @ 0 mls/hr Q0M STAT IV Last administered on 01/04/20at 17:06; Admin Dose 250 MLS/HR; Start 01/04/20 at 16:53; Stop 01/04/20 at 16:56; Status DC JERALD BARNARD MD Jan 04, 2020 17:53
--- OUTSIDE RECORDS SUMMARY | 2020-01-04 17:58 | XMS REPORT | Continuity of Care Document ---
Author Author [facility] t Organization [facility] t Address [address] [place] [address] Phone Unavailable Care Team Providers Care Legal Word Processor Name Role Phone SALBADOR LOPEZ MD PCP Yoselyn BARNARD Attphys Unavailable Christiano LUND Attphys Unavailable Payers Payer Name Policy Type Policy Number Effective Date Expiration Date S ource Problems Condition Name Condition Details Condition Category Status Onset Date Resolution Date Last Treatment Date Treating Clinician Comments Source Confusion Confusion Problem Active 2014-03-02 00:00:00 [facility] Dehydration Dehydration Problem Active 2014-03-02 00:00:00 [facility] Weakness Weak Problem Active 2014-03-02 00:00:00 [facility] Chest pain Chest pain Problem Active [facility] Multiple gallstones Gall stones Problem Active [facility] Fall Fall Problem Active [facility] Urinary tract infection UTI (urinary tract infection) Problem Active [facility] Allergies, Adverse Reactions, Alerts Allergy Name Allergy Type Status Severity Reaction(s) Onset Date Inacti ve Date Treating Clinician Comments Source No Known Allergies DA Active U 2018-08-14 00:00:00 [facility] Penicillins DA Active U 2018-08-14 00:00:00 [facility] levofloxacin DA Active U 2018-08-14 00:00:00 [facility] Levofloxacin Allergy to Substance Active Moderate FACIAL RASH / ITCHING 2018-01-04 00:00:00 [facility] levofloxacin DA Active [place] 2017-12-26 00:00:00 [facility] Medications Ordered Medication Name Filled Medication Name Start Date Stop Da te Current Medication? Ordering Clinician Indication Dosage Frequency Signature (SIG) Comments Components Source Amiodarone Hcl 200 Mg Tablet Amiodarone Hcl 200 Mg Tablet Y es 200 Daily [facility] Aspirin 325 Mg Tablet Aspirin 325 Mg Tablet Yes 650 Daily for Pain [facility] Baclofen 10 Mg Tablet Baclofen 10 Mg Tablet Yes 10 Three Times A Day for Muscle Relaxation [facility] Dyclonine Hcl 5 Gm Powder Dyclonine Hcl 5 Gm Powder Yes 10 Three Times A Day as needed for Abdominal Pain [facility] Ibuprofen 200 Mg Capsule Ibuprofen 200 Mg Capsule Yes 600 Twice A Day for Pain [facility] Kcl Er Kcl Er Yes 20 Daily [facility] Lisinopril 10 Mg Tablet Lisinopril 10 Mg Tablet Yes 10 Daily [facility] Meloxicam 7.5 Mg Tablet Meloxicam 7.5 Mg Tablet Yes 15 Daily for Pain [facility] Metoprolol Tartrate 25 Mg Tablet Metoprolol Tartrate 25 Mg Tablet Yes 100 Twice A Day for Bp Control C HI [facility] Nitrofurantoin Macrocrystal (Macrodantin) 100 Mg Capsu le Nitrofurantoin Macrocrystal (Macrodantin) 100 Mg Capsule Yes 100 Twice A Day [facility] Omeprazole 20 Mg Tablet. Omeprazole 20 Mg Tablet. Yes 1 Rt Daily for Stomach Acid [facility] Ondansetron (Zofran Odt) 4 Mg Tab.rapdis Ondansetron ( Zofran Odt) 4 Mg Tab.rapdis Yes 4 Every 6 Hours for Nausea Pr n [facility] Pregabalin (Lyrica) 50 Mg Cap Pregabalin (Lyrica) 50 Mg Cap Yes 100 Twice A Day for Pain [facility] Tramadol Hcl (Ultram) 50 Mg Tablet Tramadol Hcl (Ultram) 50 Mg Tablet Yes 100 Every 12 Hours as needed for Pain [facility] Vitamen E Vitamen E Yes 1000 [facility] Dexlansoprazole (Dexilant) 60 Mg Cap., 60 Mg Oral Dexlansoprazole (Dexilant) 60 Mg Cap., 60 Mg Oral 2018-01-04 00:00:00 No 60 Daily [facility] Estradiol 2 Mg Tablet, 2 Mg Oral Estradiol 2 Mg Tablet, 2 Mg Ora l 2018-01-04 00:00:00 No 2 Daily [facility] Meclizine Hcl 12.5 Mg Tablet, 12.5 Mg Oral Meclizine H cl 12.5 Mg Tablet, 12.5 Mg Oral 2018-01-04 00:00:00 No 12.5 Twice A Day as needed for Dizziness [facility] Tizanidine Hcl 4 Mg Tablet, 4 Mg Oral Tizanidine Hcl 4 Mg Tablet , 4 Mg Oral 2018-01-04 00:00:00 No 4 Daily [facility] Pregabalin (Lyrica) 50 Mg Cap, 200 Mg Oral Pregabalin (Lyrica) 50 Mg Cap, 200 Mg Oral 2014-03-04 00:00:00 No 200 Three Times A Day [facility] Hydrocodone Bit/Acetaminophen (Hydrocodo n-Acetaminophn 10-325) 1 Each Tablet, 1 Tab Oral Hydrocodone Bit/Acetaminophen (Hydrocodo n-Acetaminophn 10-325) 1 Each Tablet, 1 Tab Oral 2014-03-02 00:00:00 No 1 Every 4-6 Hours Prn [facility] Metoprolol Tartrate 25 Mg Tablet, 1 Tab Oral Metoprolo l Tartrate 25 Mg Tablet, 1 Tab Oral 2014-03-02 00:00:00 No 1 Afternoons [facility] Metoprolol Tartrate 25 Mg Tablet, 1 Tab Oral Metoprolo l Tartrate 25 Mg Tablet, 1 Tab Oral 2014-03-02 00:00:00 No 1 Bedtime [facility] Estradiol 0.5 Mg Tablet, 1 Tab Oral Estradiol 0.5 Mg Tablet, 1 T ab Oral 2014-02-06 00:00:00 No 1 Rt Daily [facility] Procedures Procedure Date / Time Performed Performing Clinician [facility] e Computed tomography of brain without radiopaque contrast 201 01-07-09 00:00:00 EVONJERALD Yoselyn [facility] Computed tomography of cervical spine without contrast 04-05 00:00:[address] [facility] Encounters Start Date/Time End Date/Time Encounter Type Admission Type [facility] Care Department Encounter ID Source 2019-06-11 13:36:21 Outpatient [facility] CAR [id number] [facility] 2019-01-29 05:54:00 Inpatient [facility] CAR [id number] [facility] 2019-04-05 15:01:00 2019-04-07 15:00:00 Discharged Inpatient (obs) 1 JERALD BARNARD [facility] [id number] [facility] 2019-03-29 14:14:00 2019-03-29 14:14:00 Outpatient [facility] CAR [id number] [facility] 2019-01-07 10:32:00 2019-01-07 10:32:00 Outpatient [facility] CAR [id number] [facility] 2019-01-07 08:35:00 2019-01-07 08:35:00 Outpatient [facility] CAR [id number] [facility] 2018-12-08 12:40:00 2018-12-08 12:40:00 Outpatient [facility] CAR [id number] [facility] 2018-01-04 19:58:00 2018-01-06 18:02:00 Discharged Inpatient (obs) 1 LASHAWN LUND [facility] [id number] [facility] Results Test Description Test Time Test Comments Results Result Comments Source CT BRAIN WO 2020-01-04 17:33:00 [place] [address] Patient Name: TIA GARG MR #: [id number] : 1945 Age/Sex: 74/F Req #: [id number] Adm Physician: Ordered by: JERALD BARNARD MD Report #: [id number] Location: ER Room/Bed: Procedure: [id number] CT/CT BRAIN WO Exam Date: 01/04/20 Exam Time: 1710 REPORT STATUS: Signed History: Confusion Comparison studies: Head CT on 04/05/2019 Technique: Axial images were obtained from the skull base to the vertex. Coronal and sagittal images reconstructed from the axial data. Dose modulation, iterative reconstruction, and/or weight based adjustment of the mA/kV was utilized to reduce the radiation dose to as low as reasonably achievable. Intravenous contrast: None Findings: Scalp/skull: No abnormalities. Extra-axial spaces: No masses. No fluid collections. Brain sulci: Mildly prominent. Ventricles: Mild compensatory dilatation. No hydrocephalus. Parenchyma: Confluent hypodensities in the supratentorial white matter are small vessel ischemic changes. No masses, hemorrhage, acute or chronic cortical vascular insults. Sellar/suprasellar region: No abnormalities. Craniocervical junction: Patent foramen magnum. No Chiari one malformation. Incidental findings: Subtle calcifications in the carotid siphons . Impression: No acute intracranial abnormalities. No changes when compared to the head CT on 04/05/2019 Chronic findings: 1. Mild generalized volume loss. 2. Moderate supratentorial white matter small vessel ischemic changes. Signed by: Dr. Julian Ross M.D. on 01/04/2020 5:35 PM Dictated By: JULIAN ROSS MD, MD 34 Transcribed By: NHI on 01/04/201734 COPY TO: JERALD BARNARD MD Blood Culture 2019-04-07 12:13:00 Test Item Blood Culture (test code = 98861681) NO GROWTH AFTER 48 HOURS [facility] CenterUrine Aufyqtx8164-83-66 08:48:00* Test Item Value Reference Range Interpretation Comments Urine Culture (test code = 630-4) No Result Data [facility]ided [facility] [id number] 06:12:00* Test Item Value Reference Range Interpretation Comments Sodium Level (test code = 2951-2) 136 136-145 [facility]Potassium Atxza8629-95-07 06:12:00* Test Item Value Reference Range Interpretation Comments Potassium Level (test code = 2823-3) 3.7 3.5-5.1 [facility] CenterChloride Dkhgp2208-68-62 06:12:00* Test Item Value Reference Range Interpretation Comments Chloride Level (test code = 2075-0) 107 98-107 [facility] CenterCarbon Dioxide Hcufb3621-95-30 06:12:00* Test Item Value Reference Range Interpretation Comments Carbon Dioxide Level (test code = 2028-9) 21 22-29 L [facility] CenterAnion Vjr1619-80-56 06:12:00* Test Item Value Reference Range Interpretation Comments Anion Gap (test code = 06278-2) 11.7 8-16 [facility] CenterBlood Urea Faviwhsx6261-20-36 06:12:00* Test Item Value Reference Range Interpretation Comments Blood Urea Nitrogen (test code = 3094-0) 18 7-26 [facility] CenterCreatinine2019-12-11 06:12:00* Test Item Value Reference Range Interpretation Comments Creatinine (test code = 2160-0) 0.64 0.57-1.11 [facility] CenterBUN/Creatinine Huhin6720-09-02 06:12:00* Test Item Value Reference Range Interpretation Comments BUN/Creatinine Ratio (test code = 3097-3) 28 6-25 H [facility] CenterEstimat Glomerular Filtration Rate 2019-04-07 06:12:00* Test Item Value Reference Range Interpretation Comments Estimat Glomerular Filtration Rate (test code = 790252331) > 60 >60 Ranges were taken from the National Kidney Disease Education Program and the Critical access hospital Kidney Foundation literature.Reference ranges:60 or greater: Nayiol93-64 ( for 3 consecutive months): Chronic kidney disease 15 or less: Kidney failureThe [facility] at [facility] CenterGlucose Hgtab8047-22-46 06:12:00* Test Item Value Reference Range Interpretation Comments Glucose Level (test code = RSK6269) 86 74-118 [facility] CenterCalcium Bswqd1468-55-04 06:12:00* Test Item Value Reference Range Interpretation Comments Calcium Level (test code = 21519-2) 8.6 8.4-10.2 [facility] CenterTotal Ofirpoyds0418-43-05 06:12:00* Test Item Value Reference Range Interpretation Comments Total Bilirubin (test code = 1975-2) 0.2 0.2-1.2 [facility] CenterAspartate Amino Transf (AST/SGOT) 2019-04-07 06:12:00* Test Item Value Reference Range Interpretation Comments Aspartate Amino Transf (AST/SGOT) (test code = Aspartate Amino Transf (AST/SGOT)) 11 5-34 [facility] CenterAlanine Aminotransferase (ALT/SGPT) 2019-04-07 06:12:00* Test Item Value Reference Range Interpretation Comments Alanine Aminotransferase (ALT/SGPT) (test code = 1742-6) 9 0-55 [facility] CenterTotal Zafmxvf4343-70-35 06:12:00* Test Item Value Reference Range Interpretation Comments Total Protein (test code = 2885-2) 5.5 6.5-8.1 L [facility] CenterAlbumin2019-12-11 06:12:00* Test Item Value Reference Range Interpretation Comments Albumin (test code = 1751-7) 2.5 3.5-5.0 L [facility] CenterGlobulin2019-12-11 06:12:00* Test Item Value Reference Range Interpretation Comments Globulin (test code = 44330-2) 3.0 2.3-3.5 [facility] CenterAlbumin/Globulin Ptmpi2209-82-69 06:12:00 * Test Item Value Reference Range Interpretation Comments Albumin/Globulin Ratio (test code = 1759-0) 0.8 0.8-2.0 [facility] CenterAlkaline Zewhsjdbmau1162-20-69 06:12:00* Test Item Value Reference Range Interpretation Comments Alkaline Phosphatase (test code = 6768-6) 61 40-150 [facility] CenterWhite Blood Ijsav6169-68-30 05:50:00* Test Item Value Reference Range Interpretation Comments White Blood Count (test code = 6690-2) 7.47 4.8-10.8 [facility] CenterRed Blood Otlzz0457-73-03 05:50:00* Test Item Value Reference Range Interpretation Comments Red Blood Count (test code = 789-8) 3.25 3.6-5.1 L [facility] CenterHemoglobin2019-12-11 05:50:00* Test Item Value Reference Range Interpretation Comments Hemoglobin (test code = 84301-8) 9.0 12.0-16.0 L [facility] CenterHematocrit2019-12-11 05:50:00* Test Item Value Reference Range Interpretation Comments Hematocrit (test code = 4544-3) 28.4 34.2-44.1 L [facility] CenterMean Corpuscular Jcpali9942-04-05 05:50:00* Test Item Value Reference Range Interpretation Comments Mean Corpuscular Volume (test code = 787-2) 87.4 81-99 [facility] CenterMean Corpuscular Bainrwezfo0869-58-40 05:50:00* Test Item Value Reference Range Interpretation Comments Mean Corpuscular Hemoglobin (test code = 785-6) 27.7 28-32 L [facility] CenterMean Corpuscular Hemoglobin Concent 2019-04-07 05:50:00* Test Item Value Reference Range Interpretation Comments Mean Corpuscular Hemoglobin Concent (test code = 786-4) 31.7 31-35 [facility] CenterRed Cell Distribution Bhzca9179-07-67 05:50:00* Test Item Value Reference Range Interpretation Comments Red Cell Distribution Width (test code = 77599-8) 16.7 11.7 -14.4 H [facility] CenterPlatelet Vcytg2811-80-28 05:50:00* Test Item Value Reference Range Interpretation Comments Platelet Count (test code = 777-3) 211 140-360 [facility] CenterNeutrophils (%) (Auto)2019-04-07 05:50:00 * Test Item Value Reference Range Interpretation Comments Neutrophils (%) (Auto) (test code = 73351-5) 70.2 38.7-80.0 [facility] CenterLymphocytes (%) (Auto)2019-04-07 05:50:00 * Test Item Value Reference Range Interpretation Comments Lymphocytes (%) (Auto) (test code = 736-9) 16.9 18.0-39.1 L [facility] CenterMonocytes (%) (Auto)2019-04-07 05:50:00* Test Item Value Reference Range Interpretation Comments Monocytes (%) (Auto) (test code = 5905-5) 6.7 4.4-11.3 [facility] CenterEosinophils (%) (Auto)2019-04-07 05:50:00 * Test Item Value Reference Range Interpretation Comments Eosinophils (%) (Auto) (test code = 713-8) 5.0 0.0-6.0 [facility] CenterBasophils (%) (Auto)2019-04-07 05:50:00* Test Item Value Reference Range Interpretation Comments Basophils (%) (Auto) (test code = 706-2) 0.5 0.0-1.0 [facility] CenterIM GRANULOCYTES %2019-04-07 05:50:00* Test Item Value Reference Range Interpretation Comments IM GRANULOCYTES % (test code = IM GRANULOCYTES %) 0.7 0.0- 1.0 [facility] CenterNeutrophils # (Auto)2019-04-07 05:50:00* Test Item Value Reference Range Interpretation Comments Neutrophils # (Auto) (test code = 751-8) 5.3 2.1-6.9 [facility] CenterLymphocytes # (Auto)2019-04-07 05:50:00* Test Item Value Reference Range Interpretation Comments Lymphocytes # (Auto) (test code = 97584-7) 1.3 1.0-3.2 [facility] CenterMonocytes # (Auto)2019-04-07 05:50:00* Test Item Value Reference Range Interpretation Comments Monocytes # (Auto) (test code = 742-7) 0.5 0.2-0.8 [facility] CenterEosinophils # (Auto)2019-04-07 05:50:00* Test Item Value Reference Range Interpretation Comments Eosinophils # (Auto) (test code = 711-2) 0.4 0.0-0.4 [facility] CenterBasophils # (Auto)2019-04-07 05:50:00* Test Item Value Reference Range Interpretation Comments Basophils # (Auto) (test code = 704-7) 0.0 0.0-0.1 [facility] CenterAbsolute Immature Granulocyte (auto 2019-04-07 05:50:00* Test Item Value Reference Range Interpretation Comments Absolute Immature Granulocyte (auto (raeann t code = Absolute Immature Granulocyte (auto) 0.05 0-0.1 [facility] CenterCreatine Kinase GS5364-59-96 15:18:00* Test Item Value Reference Range Interpretation Comments Creatine Kinase MB (test code = 37798-4) 1.00 0-5.0 [facility] CenterTroponin [id number] 15:18:00* Test Item Value Reference Range Interpretation Comments Troponin I (test code = ZVF5872) 0.015 0-0.300 [facility] CenterCreatine Eojvql7314-02-34 15:09:00* Test Item Value Reference Range Interpretation Comments Creatine Kinase (test code = 2157-6) 42 29-168 [facility] CenterMagnesium Ionsp4489-32-18 06:37:00* Test Item Value Reference Range Interpretation Comments Magnesium Level (test code = 52710-7) 1.8 1.3-2.1 [facility] CenterInfluenza Virus Types A,B Antigen 2019-04-05 18:22:00* Test Item Value Reference Range Interpretation Comments Influenza Virus Types A,B Antigen (test code = 78464-0) NEGATIVE NEGATIVE [facility] CenterUrine LTJ6739-30-66 14:45:00* Test Item Value Reference Range Interpretation Comments Urine WBC (test code = 5821-4) 0-5 0-5 [facility] CenterUrine CHK5890-85-75 14:45:00* Test Item Value Reference Range Interpretation Comments Urine RBC (test code = 39833-3) 6-10 0-5 H [facility] CenterUrine Mwbiwppi7997-40-81 14:45:00* Test Item Value Reference Range Interpretation Comments Urine Bacteria (test code = 57272-7) MANY NONE H [facility] CenterUrine Epithelial Lgklm7191-52-49 14:45:00 * Test Item Value Reference Range Interpretation Comments Urine Epithelial Cells (test code = 93728-8) MANY NONE [facility] CenterUrine Transitional Epithelial Cells 2019-04-05 14:45:00* Test Item Value Reference Range Interpretation Comments Urine Transitional Epithelial Cells (test code = 8249-5) MODERATE NONE H [facility] CenterUrine Yaeut8496-91-77 14:31:00* Test Item Value Reference Range Interpretation Comments Urine Color (test code = 5778-6) YELLOW YELLOW [facility] CenterUrine Hsalmeu0949-57-07 14:31:00* Test Item Value Reference Range Interpretation Comments Urine Clarity (test code = 75291-6) SL CLOUDY CLEAR [facility] CenterUrine Specific Dfbjwmw7935-10-24 14:31:00 * Test Item Value Reference Range Interpretation Comments Urine Specific [place] (test code = 5811-5) 1.020 1.010-1.02 5 [facility] CenterUrine mO4390-12-91 14:31:00* Test Item Value Reference Range Interpretation Comments Urine pH (test code = 82024-8) 6.5 5-7 [facility] CenterUrine Leukocyte Upnbqcvf8133-92-94 14:31:00* Test Item Value Reference Range Interpretation Comments Urine Leukocyte Esterase (test code = 5799-2) NEGATIVE NEGATIVE [facility] CenterUrine Vaqqumn6908-84-14 14:31:00* Test Item Value Reference Range Interpretation Comments Urine Nitrite (test code = 85329-5) POSITIVE NEGATIVE H [facility] CenterUrine Npltxkm7926-12-73 14:31:00* Test Item Value Reference Range Interpretation Comments Urine Protein (test code = 5804-0) 2+ NEGATIVE H [facility] CenterUrine Glucose (UA)2019-04-05 14:31:00* Test Item Value Reference Range Interpretation Comments Urine Glucose (UA) (test code = 2349-9) NEGATIVE NEGATIVE [facility] CenterUrine Dijmbpf1825-22-87 14:31:00* Test Item Value Reference Range Interpretation Comments Urine Ketones (test code = 11074-9) TRACE NEGATIVE H [facility] CenterUrine Ujktvgitbdvn1095-68-52 14:31:00* Test Item Value Reference Range Interpretation Comments Urine Urobilinogen (test code = 58218-1) 0.2 0.2-1 [facility] CenterUrine Vpmvpnhzt6260-73-15 14:31:00* Test Item Value Reference Range Interpretation Comments Urine Bilirubin (test code = 1978-6) NEGATIVE NEGATIVE [facility] CenterUrine Lwyci6142-60-82 14:31:00* Test Item Value Reference Range Interpretation Comments Urine Blood (test code = 94806-8) TRACE NEGATIVE H [facility] CenterB-Type Natriuretic Hzrmwvz2765-55-32 13:11:00* Test Item Value Reference Range Interpretation Comments B-Type Natriuretic Peptide (test code = 50024-0) 133.9 0-100 H [facility] CenterCHEST SINGLE (PORTABLE)2019-04-05 12:56:00 [place] [address] Patient Name: TIA GARG MR #: [id number] : 1945 Age/Sex: 73/F Req #: [id number] Adm Physician: Ordered by: JERALD BARNARD MD Report #: [id number] Location: ER Room/Bed: Procedure: [id number] DX/ CHEST SINGLE (PORTABLE) Exam Date: Exam Time: REPORT STATUS: Signed Chest, portable AP view History: All, pain Comparison: 01/04/2018 IMPRESSION: The heart is within normal limits size. The mediastinal and hilar contours are unremarkable. No focal consolidation, sizable pleural effusion, pneumothorax, or acute osseous abnormality. Signed by: Prabhjot De La Vega MD on 04/05/2019 12:57 PM Dictated By: PRABHJOT DE LA VEGA MD 1257 Transcribed By: NHI on 04/05/19 1257 COPY TO: JERALD BARNARD MD PELVIS AP 1-2 EQBTS6753-82-08 12:54:00 [place] [address] Patient Name: TIA GARG MR #: [id number] : 1945 Age/Sex: 73/F Req #: [id number] Adm Physician: Ordered by: JERALD BARNARD MD Report #: [id number] Location: ER Room/Bed: Procedure: [id number] DX/ PELVIS AP 1-2 VIEWS Exam Date: Exam Time: REPORT STATUS: Signed AP view the pelvis Clinical indications: Fall, pain Comparison: None Findings: 2 AP radiographs of the pelvis were obtained. There is no radiographic evidence of acute fracture or dislocation. Mild narrowing of the bilateral hip joints. Calcified densities overlying the pelvis are likely phleboliths. Impre ssion: No radiographic evidence of acute fracture or dislocation. Signed by: Prabhjot De La Vega MD on 04/05/2019 12:55 PM Dictated By: PRABHJOT NUÑEZ MD 1255 Transcr ibed By: NHI on 04/05/19 1255 COPY TO: JERALD BARNARD MD Lactic Acid Dtetv9884-31-32 12:48:00* Test Item Value Reference Range Interpretation Comments Lactic Acid Level (test code = Lactic Acid Level) 1.6 0.5- 2.0 [facility] CenterCT CERVICAL SPINE RS1642-99-29 12:36:00 [place] [address] Patient Name: TIA GARG MR #: [id number] : 1945 Age/Sex: 73/F Req #: [id number] Adm Physician: Ordered by: JERALD BARNARD MD Report #: [id number] Location: ER Room/Bed: Procedure: [id number] CT/ CT CERVICAL SPINE WO Exam Date: 04/05/19 Exam Time: 1208 REPORT STATUS: Signed CT CE RVICAL SPINE WO HISTORY: Fall COMPARISON: Concurrent head CT KO HNIQUE: CT of the cervical spine without contrast. Sagittal and coronal refor mations were created. One or more of the following dose reduction techniques were used: Automated exposure control, adjustment of the mA and/or kV accordin g to patient size, and/or utilization of iterative reconstruction technique. FINDINGS: Mild bone demineralization limits osseous evaluation. Cervic al lordosis is preserved. There is no significant scoliosis. No definite acu te fracture or compression deformity is seen. The craniocervical junction is intact. No gross spinal canal masses are seen. The paravertebral and para spinal soft tissues are unremarkable. Degenerative changes: Mild to modera te multilevel spondylosis is present. Multilevel bilateral facet arthrosis is most prominent on the left C3-C4 and C4-C5; there is associated grade 1 navya listhesis of C6 on C7. Incidental findings: There is nonspecific mild mosa ic attenuation in the lung apices. IMPRESSION: No acute osseous abnor malities. Degenerative changes as described above. Signed by: Dr. Wily Chaudhari M.D. on 04/05/2019 12:41 PM Dictated By: WILY RUFFIN MD Elect ronically Signed By: WILY RUFFIN MD on 04/05/19 1241 Transcribed By: DES SELBY on 04/05/19 1241 COPY TO: JERALD BARNARD MD Prothrombin Time 2019-04-05 12:33:00* Test Item Value Reference Range Interpretation Comments Prothrombin Time (test code = 5902-2) 14.2 11.9-14.5 [facility] International Ratio 2019-04-05 12:33:00* Test Item Value Reference Range Interpretation Comments Prothromb Time International Ratio (test code = 6301-6) 1.05 Oral Anticoagulant Therapy INR Values:1. Low Intensity Therapy 1.5 - 2.02 . Moderate Intensity Therapy 2.0 - 3.03. High Intensity Therapy(1) 2.5 - 3. 54. High Intensity Therapy(2) 3.0 - 4.05. Panic Value INR > 5.0 [facility] CenterAct[facility] Partial Thromboplast Time 2019-04-05 12:33:00* Test Item Value Reference Range Interpretation Comments Activated Partial Thromboplast Time (test code = 59385-5) 32.6 23.8-35.5 [facility] CenterCT BRAIN [id number] 12:32:00 [place] [address] Patient Name: TIA GARG MR #: [id number] : 1945 Age/Sex: 73/F Req #: [id number] Adm Physician: Ordered by: JERALD BARNARD MD Report #: [id number] Location: Room/Bed: Procedure: [id number] CT/ CT BRAIN WO Exam Date: 04/05/19 Exam Time: 1208 REPORT STATUS: Signed CT BRAIN WO HISTORY: Fall COMPARISON: Report from head CT dated 09/27/2016 Techn ique: Noncontrast axial scans were obtained from skull base to the vertex. C oronal and sagittal reconstructions obtained from the axial data. One or more of the following dose reduction techniques were used: Automated exposure cont rol, adjustment of the mA and/or kV according to patient size, and/or utilizat ion of iterative reconstruction technique. Beam hardening artifacts obscure so me details. DISCUSSION: Scalp/Skull: Unremarkable. Brain sulci: Mi ldly prominent. Ventricles: Compensatory dilatation. Extra-axial spaces: No masses or fluid collections. Carotid siphon calcifications are present. P arenchyma: Moderate bilateral deep white matter hypodensity is likely chronic microvascular ischemic change. Otherwise, no masses, hemorrhage, or large vascular territory acute infarct. Dural sinuses: No abnormal densities. Sellar/Suprasellar region: Intact. Skull base: Intact. Incidental findings: None. IMPRESSION: 1. No acute intracranial abnormalities. 2. Moderate supratentorial chronic microvascular ischemic change. Mild generalized cerebr al volume loss. Signed by: Dr. Wily Ruffin M.D. on 04/05/2019 12:36 P M Dictated By: WILY RUFFIN MD 1236 Transcribed By: NHI on 04/05/19 1236 COPY T O: JERALD BARNARD MD AB COCCI IMMITIS, [id number] 11:14:00* Test Item Value Reference Range Interpretation Comments AB COCCI IMMITIS, CSF (test code = COCCIIMMCSF) <1:2 INTERPRETIVE INFORMATION: Coccidioides Ab by ComplementFixation (CF) Any titer suggests past or current infection. However,greater than 30 percent of cases with chronic residualpulmonary disease have negative Complement Fixation (CF)tests. Titers of less than 1:32 (even as low as 1:2) mayindicate past infection or self-limited disease;anticoccidiodal CF antibody titers in excess of 1:16 mayindicate di sseminated infection. CF serology may be used tofollow therapy. Antibody in CSF is considered diagnostic forcoccidioidal meningitis, although 10 percent of patientswith coccidioidal meningitis will not have antibody in CSF. Test developed and characteristics determined by [facility]. See Compliance Statement B: [email or web address] COMMENTS: CSFENCEPHALITIS [id number] 11:14:00* Test Item Value Reference Range Interpretation Comments AB ENCEPHALITIS INÉS-IGM (test code = ENCSTMAB) NEGATIVE TITER NEGATIVE SOURCE (test code = SOURCE) CEREBRAL SPINAL FLD AB WEST NILE VIRUS IGM (test code = WESNIABIGM) NEGATIVE Results of Arbovirus IgM TONG serve only as an aid todiagnosis and should be interpreted in relation to thepatient's clinical picture, other diagnostic findings, andepidemiological data. Lack of serological evidence forarbovirus infection may reflect testing of acute phase serumobtained before antibodies are produced. Antibodies toflaviviruses exhibit cross reactivity and their detection islimited in it usefulness in differentiating specificflaviviruses. The test has not been approved or cleared bythe Food and Drug Administration. COMMENTS: CSFAB ECHOVIRUS PANEL [id number] 11:14:00* Test Item Value Reference Range Interpretation Comments AB ECHOVIRUS 9 AB CSF (test code = UIYE8RBYPA) <1:10 < 1:10 AB ECHOVIRUS 11 AB CSF (test code = SAOL75TKWKN) <1:10 < 1:1 0 AB ECHOVIRUS 30 AB CSF (test code = ICSN32QTGEB) <1:10 <1:10 This data was established following evaluation of anormal population withoutany current infection of these echovirus subtypes.The clinical significance and criteria for theinterpretation of Echovirussubtypes 6, 7, 9, 11 and 30 performed on cerebrospinalfluid has not beenestablished.The performance characteristics of the listed assays werevalidated by [employer] ([employer] The US FDA has not approved or clearedthese tests. Theresults of these assays can be used for clinicaldiagnosis without FDA approval.i.TV. is a CLIA certified, CAPaccredited laboratory forperforming high complexity assays such as these.Testing Performed at: [facility] [address] [place], [place] [id number] At: E= [facility] [address] [id number] Thomas J PhD Ph:[phone] AB ECHOVIRUS 7 AB CSF (test code = JZWL7INNJY) <1:10 < 1:10 ECHOVIRUS 6 AB CSF (test code = GVBX3TXX) <1:10 < 1:10 COMMENTS: CSFWEST NILE VIRUS AB PANEL [id number] 11:14:00* Test Item Value Reference Range Interpretation Comments AB WEST NILE VIRUS IGG CSF (test code = WSNIABGCSF) Equivocal Ne gative AB WEST NILE VIRUS IGM CSF (test code = WSNIABMCSF) Negative Ne gative No detectable West Nile Virus IgM Antibody. If a recentinfection is suspected, another specimen should besubmitted for testing within 7-14 days.Performed At: [address] [id number] Caba MD Ph:[phone] COMMENTS: CSFCSF IGG SYNTHESIS [id number] 11:12:00* Test Item Value Reference Range Interpretation Comments CSF ALBUMIN (test code = ALBCSF) 19 mg/dL 11-48 CSF IMMUNOGLOBULIN G (test code = IGGCSF) 1.8 mg/dL 0.0-8.6 CSF IGG INDEX (test code = IGGINCSF) 0.6 0.0-0.7 CSF IGG SYNTHESIS (test code = IGGSYNCSF) 0.1 mg/day 9.9 TO +3.3 CSF IGG/ALBUMIN RATIO (test code = IGGALBCSF) 0.09 0.00-0.2 5 SERUM IMMUNOGLOBULIN G (test code = IGGMS) 535 mg/dL 700-1600 A SERUM ALBUMIN (test code = ALBMS) 3.3 g/dL 3.5-4.8 A SERUM ALBUMIN INDEX (test code = ALBINDMS) 6 0-8 Relationship to blood-brain barrier: Consistent with an intact barrier <9 Slight impairment 9 - 14 Moderate impairment 14 - 30 Severe impairment 30 - 100 Complete breakdown >100Performed At: [facility] [id number] Caba MD Ph:[phone] At: [facility] [id number] Kyle L MD Ph:[phone] COMMENTS: PLEASE USE TUBE #3CSF OLIGOCLONAL BAND [id number] 11:12:00* Test Item Value Reference Range Interpretation Comments CSF OLIGOCLONAL BANDS (test code = OLIGCSF) () Zero (0) oligoclonal bands were observed in the CSF.Interpretation: Criteria for Positivity: Four (4) or more oligoclonalbands observed only in the CSF have been shown to be mostconsistent with MS using our method. [Seema , Deisi, Mame BG, and Daphnie JA: Cerebrospinal FluidOligoclonal Bands in the Diagnosis of Multiple Sclerosis.Am J Clin Pathol 120(5):672-675, 2003]. Oligoclonal bands that are present only in the CSF havebeen associated with a variety of inflammatory braindiseases such as multiple sclerosis (MS), subacuteencephalitis, neurosyphilis, etc. Increased IgG in the CSFis not specific for MS, but is an indication of chronicneural inflammation. Clinical correlation indicated. Approximately 2-3% of clinically confirmed MS patientsshow little or no evidence of oligoclonal bands in theCSF; however oligoclonal bands may develop as the diseaseprogresses. Oligoclonal Banding testing performed using IsoelectricFocusing (IEF) and immunoblotting methodology.Performed At: [facility] [id number] Caba MD Ph:[phone] COMMENTS: PLEASE USE TUBE #3CSF [id number] 11:12:00* Test Item Value Reference Range Interpretation Comments CSF PROTEIN (test code = PROTECSF) 35.4 mg/dL 0.0-44.0 CSF PREALBUMIN % (test code = PREALB%) 5.2 % 2.2-7.1 CSF ALBUMIN % (test code = ALBCSF%) 55.8 % 56.8-76.4 A CSF HEIRO-2-XNWUQZBV % (test code = A1GCSF%) 3.2 % 1.1-6.6 CSF UEPEQ-5-FOZZTIFB % (test code = A2GCSF%) 6.5 % 3.0-12.6 CSF BETA GLOBULIN % (test code = BGCSF%) 22.1 % 7.3-17.9 A CSF GAMMA GLOBULIN % (test code = GGCSF%) 7.3 % 3.0-13.0 Protein electrophoresis scan will follow via computer,mail, or shank inspector delivery. CSF M SPIKE % (test code = MSCSF%) Not Observed % Not Observed Performed At: [facility] [id number] Powers MD Ph:[phone] At: [address] [id number] Caba MD Ph:[phone] COMMENTS: PLEASE USE TUBE #3CSF MYELIN SHEATH [id number] 11:12:00* Test Item Value Reference Range Interpretation Comments CSF MYELIN SHEATH PROTEIN (test code = MYELCSF) 5.2 ng/mL 0.0-1. 2 A Results for this test are for research purposes only by theassay's handkerchief cutter. The performance characteristics ofthis product have not been established. Results should notbe used as a diagnostic procedure without confirmation ofthe diagnosis by another medically established diagnosticproduct or procedure.Performed At: [address] [id number] Caba MD Ph:[phone] COMMENTS: PLEASE USE TUBE #3AB COCCI IMMITIS, [id number] 09:57:00* Test Item Value Reference Range Interpretation Comments AB COCCI IMMITIS, CSF (test code = COCCIIMMCSF) <1:2 INTERPRETIVE INFORMATION: Coccidioides Ab by ComplementFixation (CF) Any titer suggests past or current infection. However,greater than 30 percent of cases with chronic residualpulmonary disease have negative Complement Fixation (CF)tests. Titers of less than 1:32 (even as low as 1:2) mayindicate past infection or self-limited disease;anticoccidiodal CF antibody titers in excess of 1:16 mayindicate di sseminated infection. CF serology may be used tofollow therapy. Antibody in CSF is considered diagnostic forcoccidioidal meningitis, although 10 percent of patientswith coccidioidal meningitis will not have antibody in CSF. Test developed and characteristics determined by [facility]. See Compliance Statement B: [email or web address] COMMENTS: CSFENCEPHALITIS [id number] 09:57:00* Test Item Value Reference Range Interpretation Comments AB ENCEPHALITIS INÉS-IGM (test code = ENCSTMAB) NEGATIVE TITER NEGATIVE SOURCE (test code = SOURCE) CEREBRAL SPINAL FLD AB WEST NILE VIRUS IGM (test code = WESNIABIGM) NEGATIVE Results of Arbovirus IgM TONG serve only as an aid todiagnosis and should be interpreted in relation to thepatient's clinical picture, other diagnostic findings, andepidemiological data. Lack of serological evidence forarbovirus infection may reflect testing of acute phase serumobtained before antibodies are produced. Antibodies toflaviviruses exhibit cross reactivity and their detection islimited in it usefulness in differentiating specificflaviviruses. The test has not been approved or cleared bythe Food and Drug Administration. COMMENTS: CSFAB ECHOVIRUS PANEL [id number] 09:57:00* Test Item Value Reference Range Interpretation Comments AB ECHOVIRUS 9 AB CSF (test code = YIKS7KDMLT) <1:10 < 1:10 AB ECHOVIRUS 11 AB CSF (test code = HCUM36MRBDH) <1:10 < 1:1 0 AB ECHOVIRUS 30 AB CSF (test code = JWFN26MQIIG) <1:10 <1:10 This data was established following evaluation of anormal population withoutany current infection of these echovirus subtypes.The clinical significance and criteria for theinterpretation of Echovirussubtypes 6, 7, 9, 11 and 30 performed on cerebrospinalfluid has not beenestablished.The performance characteristics of the listed assays werevalidated by [employer] ([employer] The [place] FDA has not approved or clearedthese tests. Theresults of these assays can be used for clinicaldiagnosis without FDA approval.i.TV. is a CLIA certified, CAPaccredited laboratory forperforming high complexity assays such as these.Testing Performed at: [facility] [address] [place], [place] [id number] At: E= [facility] [address] [place], [place] [id number] Thomas J PhD Ph:[phone] AB ECHOVIRUS CF (test code = ECHOAB) AB ECHOVIRUS 7 AB CSF (test code = VTNW4NCINE) <1:10 < 1:10 ECHOVIRUS 6 AB CSF (test code = ZPXN8CFH) <1:10 < 1:10 COMMENTS: CSFWEST NILE VIRUS AB PANEL [id number] 09:57:00* Test Item Value Reference Range Interpretation Comments AB WEST NILE VIRUS IGG CSF (test code = WSNIABGCSF) Equivocal Ne gative AB WEST NILE VIRUS IGM CSF (test code = WSNIABMCSF) Negative Ne gative No detectable West Nile Virus IgM Antibody. If a recentinfection is suspected, another specimen should besubmitted for testing within 7-14 days.Performed At: [address] [id number] Sanjai MD Ph:[phone] COMMENTS: CSFAB COCCI IMMITIS, [id number] 09:45:00* Test Item Value Reference Range Interpretation Comments AB COCCI IMMITIS, CSF (test code = COCCIIMMCSF) <1:2 INTERPRETIVE INFORMATION: Coccidioides Ab by ComplementFixation (CF) Any titer suggests past or current infection. However,greater than 30 percent of cases with chronic residualpulmonary disease have negative Complement Fixation (CF)tests. Titers of less than 1:32 (even as low as 1:2) mayindicate past infection or self-limited disease;anticoccidiodal CF antibody titers in excess of 1:16 mayindicate di sseminated infection. CF serology may be used tofollow therapy. Antibody in CSF is considered diagnostic forcoccidioidal meningitis, although 10 percent of patientswith coccidioidal meningitis will not have antibody in CSF. Test developed and characteristics determined by [email or web address]. See Compliance Statement B: [email or web address] COMMENTS: CSFENCEPHALITIS [id number] 09:45:00* Test Item Value Reference Range Interpretation Comments AB ENCEPHALITIS INÉS-IGM (test code = ENCSTMAB) TITER NE GATIVE SOURCE (test code = SOURCE) AB WEST NILE VIRUS IGM (test code = WESNIABIGM) COMMENTS: CSFAB ECHOVIRUS PANEL [id number] 09:45:00* Test Item Value Reference Range Interpretation Comments AB ECHOVIRUS 9 AB CSF (test code = FAYR8UIRXD) <1:10 < 1:10 AB ECHOVIRUS 11 AB CSF (test code = HFMC67CGVQH) <1:10 < 1:1 0 AB ECHOVIRUS 30 AB CSF (test code = BAWQ60UCXHA) <1:10 <1:10 This data was established following evaluation of anormal population withoutany current infection of these echovirus subtypes.The clinical significance and criteria for theinterpretation of Echovirussubtypes 6, 7, 9, 11 and 30 performed on cerebrospinalfluid has not beenestablished.The performance characteristics of the listed assays werevalidated by [employer] ([employer] The [place] FDA has not approved or clearedthese tests. Theresults of these assays can be used for clinicaldiagnosis without FDA approval.i.TV. is a CLIA certified, CAPaccredited laboratory forperforming high complexity assays such as these.Testing Performed at: [facility] [address] [place], [place] [id number] At: E= [facility] [address] [id number] Thomas J PhD Ph:[phone] AB ECHOVIRUS CF (test code = ECHOAB) AB ECHOVIRUS 7 AB CSF (test code = GJBL4ILNYB) <1:10 < 1:10 ECHOVIRUS 6 AB CSF (test code = ORCF8YFR) <1:10 < 1:10 COMMENTS: CSFWEST NILE VIRUS AB PANEL [id number] 09:45:00* Test Item Value Reference Range Interpretation Comments AB WEST NILE VIRUS IGG CSF (test code = WSNIABGCSF) Equivocal Ne gative AB WEST NILE VIRUS IGM CSF (test code = WSNIABMCSF) Negative Ne gative No detectable West Nile Virus IgM Antibody. If a recentinfection is suspected, another specimen should besubmitted for testing within 7-14 days.Performed At: [facility] [id number] Sanjai MD Ph:[phone] COMMENTS: CSFAB COCCI IMMITIS, [id number] 09:07:00* Test Item Value Reference Range Interpretation Comments AB COCCI IMMITIS, CSF (test code = COCCIIMMCSF) COMMENTS: CSFENCEPHALITIS [id number] 09:07:00* Test Item Value Reference Range Interpretation Comments AB ENCEPHALITIS INÉS-IGM (test code = ENCSTMAB) TITER NE GATIVE SOURCE (test code = SOURCE) AB WEST NILE VIRUS IGM (test code = WESNIABIGM) COMMENTS: CSFAB ECHOVIRUS PANEL [id number] 09:07:00* Test Item Value Reference Range Interpretation Comments AB ECHOVIRUS 9 AB CSF (test code = OMYQ8MUALQ) <1:10 < 1:10 AB ECHOVIRUS 11 AB CSF (test code = TIEM45FPNQW) <1:10 < 1:1 0 AB ECHOVIRUS 30 AB CSF (test code = OVMH31TNEUF) <1:10 <1:10 This data was established following evaluation of anormal population withoutany current infection of these echovirus subtypes.The clinical significance and criteria for theinterpretation of Echovirussubtypes 6, 7, 9, 11 and 30 performed on cerebrospinalfluid has not beenestablished.The performance characteristics of the listed assays werevalidated by [facility] ([employer] The [place] FDA has not approved or clearedthese tests. Theresults of these assays can be used for clinicaldiagnosis without FDA approval.i.TV. is a CLIA certified, CAPaccredited laboratory forperforming high complexity assays such as these.Testing Performed at: [facility] [address] [place], [place] [id number] At: E= [facility] [address] [id number] Thomas J PhD Ph:[phone] AB ECHOVIRUS CF (test code = ECHOAB) AB ECHOVIRUS 7 AB CSF (test code = SWBE3ROBUO) <1:10 < 1:10 ECHOVIRUS 6 AB CSF (test code = XQAH9SHI) <1:10 < 1:10 COMMENTS: CSFWEST NILE VIRUS AB PANEL [id number] 09:07:00* Test Item Value Reference Range Interpretation Comments AB WEST NILE VIRUS IGG CSF (test code = WSNIABGCSF) Equivocal Ne gative AB WEST NILE VIRUS IGM CSF (test code = WSNIABMCSF) Negative Ne gative No detectable West Nile Virus IgM Antibody. If a recentinfection is suspected, another specimen should besubmitted for testing within 7-14 days.Performed At: [address] [id number] Caba MD Ph:[phone] COMMENTS: CSFCSF IGG SYNTHESIS [id number] 14:10:00* Test Item Value Reference Range Interpretation Comments CSF ALBUMIN (test code = ALBCSF) 19 mg/dL 11-48 CSF IMMUNOGLOBULIN G (test code = IGGCSF) 1.8 mg/dL 0.0-8.6 CSF IGG INDEX (test code = IGGINCSF) 0.6 0.0-0.7 CSF IGG SYNTHESIS (test code = IGGSYNCSF) 0.1 mg/day 9.9 TO +3.3 CSF IGG/ALBUMIN RATIO (test code = IGGALBCSF) 0.09 0.00-0.2 5 SERUM IMMUNOGLOBULIN G (test code = IGGMS) 535 mg/dL 700-1600 A SERUM ALBUMIN (test code = ALBMS) 3.3 g/dL 3.5-4.8 A SERUM ALBUMIN INDEX (test code = ALBINDMS) 6 0-8 Relationship to blood-brain barrier: Consistent with an intact barrier <9 Slight impairment 9 - 14 Moderate impairment 14 - 30 Severe impairment 30 - 100 Complete breakdown >100Performed At: [address] [id number] Caba MD Ph:[phone] At: [facility] [id number] Powers MD Ph:[phone] COMMENTS: PLEASE USE TUBE #3CSF OLIGOCLONAL BAND [id number] 14:10:00* Test Item Value Reference Range Interpretation Comments CSF OLIGOCLONAL BANDS (test code = OLIGCSF) () Zero (0) oligoclonal bands were observed in the CSF.Interpretation: Criteria for Positivity: Four (4) or more oligoclonalbands observed only in the CSF have been shown to be mostconsistent with MS using our method. [Seema , Deisi, Mame BENSON, and Daphnie NAZARIO: Cerebrospinal FluidOligoclonal Bands in the Diagnosis of Multiple Sclerosis.Am J Clin Pathol 120(5):672-675, 2003]. Oligoclonal bands that are present only in the CSF havebeen associated with a variety of inflammatory braindiseases such as multiple sclerosis (MS), subacuteencephalitis, neurosyphilis, etc. Increased IgG in the CSFis not specific for MS, but is an indication of chronicneural inflammation. Clinical correlation indicated. Approximately 2-3% of clinically confirmed MS patientsshow little or no evidence of oligoclonal bands in theCSF; however oligoclonal bands may develop as the diseaseprogresses. Oligoclonal Banding testing performed using IsoelectricFocusing (IEF) and immunoblotting methodology.Performed At: [facility] [address] [id number] Caba MD Ph:[phone] OLIGOCLONAL BAND SR (test code = OLIGSR) COMMENTS: PLEASE USE TUBE #3CSF [id number] 14:10:00* Test Item Value Reference Range Interpretation Comments CSF PROTEIN (test code = PROTECSF) 35.4 mg/dL 0.0-44.0 CSF PREALBUMIN % (test code = PREALB%) 5.2 % 2.2-7.1 CSF ALBUMIN % (test code = ALBCSF%) 55.8 % 56.8-76.4 A CSF FBIMX-8-LGGKJWHK % (test code = A1GCSF%) 3.2 % 1.1-6.6 CSF FDIEN-4-CXDROYWZ % (test code = A2GCSF%) 6.5 % 3.0-12.6 CSF BETA GLOBULIN % (test code = BGCSF%) 22.1 % 7.3-17.9 A CSF GAMMA GLOBULIN % (test code = GGCSF%) 7.3 % 3.0-13.0 Protein electrophoresis scan will follow via computer,mail, or shank inspector delivery. CSF M SPIKE % (test code = MSCSF%) Not Observed % Not Observed Performed At: [facility] [id number] Jeremiah Powers MD Ph:[phone] At: [facility] [address] [place], [place] [id number] Sanjai MD Ph:[phone] COMMENTS: PLEASE USE TUBE #3CSF MYELIN SHEATH [id number] 14:10:00* Test Item Value Reference Range Interpretation Comments CSF MYELIN SHEATH PROTEIN (test code = MYELCSF) 5.2 ng/mL 0.0-1. 2 A Results for this test are for research purposes only by theassay's handkerchief cutter. The performance characteristics ofthis product have not been established. Results should notbe used as a diagnostic procedure without confirmation ofthe diagnosis by another medically established diagnosticproduct or procedure.Performed At: [facility] [address] [place], [place] [id number] Sanjai MD Ph:[phone] COMMENTS: PLEASE USE TUBE #3CSF IGG SYNTHESIS [id number] 15:11:00* Test Item Value Reference Range Interpretation Comments CSF ALBUMIN (test code = ALBCSF) CSF IMMUNOGLOBULIN G (test code = IGGCSF) CSF IGG INDEX (test code = IGGINCSF) CSF IGG SYNTHESIS (test code = IGGSYNCSF) CSF IGG/ALBUMIN RATIO (test code = IGGALBCSF) SERUM IMMUNOGLOBULIN G (test code = IGGMS) SERUM ALBUMIN (test code = ALBMS) SERUM ALBUMIN INDEX (test code = ALBINDMS) COMMENTS: PLEASE USE TUBE #3CSF OLIGOCLONAL BAND [id number] 15:11:00* Test Item Value Reference Range Interpretation Comments CSF OLIGOCLONAL BANDS (test code = OLIGCSF) () Zero (0) oligoclonal bands were observed in the CSF.Interpretation: Criteria for Positivity: Four (4) or more oligoclonalbands observed only in the CSF have been shown to be mostconsistent with MS using our method. [Seema , Mame Lipscomb, and Daphnie JA: Cerebrospinal FluidOligoclonal Bands in the Diagnosis of Multiple Sclerosis.Am J Clin Pathol 120(5):672-675, 2003]. Oligoclonal bands that are present only in the CSF havebeen associated with a variety of inflammatory braindiseases such as multiple sclerosis (MS), subacuteencephalitis, neurosyphilis, etc. Increased IgG in the CSFis not specific for MS, but is an indication of chronicneural inflammation. Clinical correlation indicated. Approximately 2-3% of clinically confirmed MS patientsshow little or no evidence of oligoclonal bands in theCSF; however oligoclonal bands may develop as the diseaseprogresses. Oligoclonal Banding testing performed using IsoelectricFocusing (IEF) and immunoblotting methodology.Performed At: [facility] [id number] Caba MD Ph:[phone] OLIGOCLONAL BAND SR (test code = OLIGSR) COMMENTS: PLEASE USE TUBE #3CSF [id number] 15:11:00* Test Item Value Reference Range Interpretation Comments CSF PROTEIN (test code = PROTECSF) 35.4 mg/dL 0.0-44.0 CSF PREALBUMIN % (test code = PREALB%) 5.2 % 2.2-7.1 CSF ALBUMIN % (test code = ALBCSF%) 55.8 % 56.8-76.4 A CSF KTSRR-6-SIHHRUPQ % (test code = A1GCSF%) 3.2 % 1.1-6.6 CSF JJLQM-8-MWEKYGZB % (test code = A2GCSF%) 6.5 % 3.0-12.6 CSF BETA GLOBULIN % (test code = BGCSF%) 22.1 % 7.3-17.9 A CSF GAMMA GLOBULIN % (test code = GGCSF%) 7.3 % 3.0-13.0 Protein electrophoresis scan will follow via computer,mail, or shank inspector delivery. CSF M SPIKE % (test code = MSCSF%) Not Observed % Not Observed Performed At: [address] [id number] Kyle L MD Ph:[phone] At: [address] [id number] Caba MD Ph:[phone] COMMENTS: PLEASE USE TUBE #3CSF MYELIN SHEATH [id number] 15:11:00* Test Item Value Reference Range Interpretation Comments CSF MYELIN SHEATH PROTEIN (test code = MYELCSF) 5.2 ng/mL 0.0-1. 2 A Results for this test are for research purposes only by theassay's handkerchief cutter. The performance characteristics ofthis product have not been established. Results should notbe used as a diagnostic procedure without confirmation ofthe diagnosis by another medically established diagnosticproduct or procedure.Performed At: [address] [id number] Sanjai MD Ph:[phone] COMMENTS: PLEASE USE TUBE #3CSF IGG SYNTHESIS [id number] 14:10:00* Test Item Value Reference Range Interpretation Comments CSF ALBUMIN (test code = ALBCSF) CSF IMMUNOGLOBULIN G (test code = IGGCSF) CSF IGG INDEX (test code = IGGINCSF) CSF IGG SYNTHESIS (test code = IGGSYNCSF) CSF IGG/ALBUMIN RATIO (test code = IGGALBCSF) SERUM IMMUNOGLOBULIN G (test code = IGGMS) SERUM ALBUMIN (test code = ALBMS) SERUM ALBUMIN INDEX (test code = ALBINDMS) COMMENTS: PLEASE USE TUBE #3CSF OLIGOCLONAL BAND [id number] 14:10:00* Test Item Value Reference Range Interpretation Comments CSF OLIGOCLONAL BANDS (test code = OLIGCSF) OLIGOCLONAL BAND SR (test code = OLIGSR) COMMENTS: PLEASE USE TUBE #3CSF [id number] 14:10:00* Test Item Value Reference Range Interpretation Comments CSF PROTEIN (test code = PROTECSF) 35.4 mg/dL 0.0-44.0 CSF PREALBUMIN % (test code = PREALB%) 5.2 % 2.2-7.1 CSF ALBUMIN % (test code = ALBCSF%) 55.8 % 56.8-76.4 A CSF MUDLL-3-EZMMYOWW % (test code = A1GCSF%) 3.2 % 1.1-6.6 CSF UPEMV-3-MNZAYBCD % (test code = A2GCSF%) 6.5 % 3.0-12.6 CSF BETA GLOBULIN % (test code = BGCSF%) 22.1 % 7.3-17.9 A CSF GAMMA GLOBULIN % (test code = GGCSF%) 7.3 % 3.0-13.0 Protein electrophoresis scan will follow via computer,mail, or shank inspector delivery. CSF M SPIKE % (test code = MSCSF%) Not Observed % Not Observed Performed At: [facility] [place], [place] [id number] Kyle L MD Ph:[phone] At: [address] [id number] Sanjai MD Ph:[phone] COMMENTS: PLEASE USE TUBE #3CSF MYELIN SHEATH [id number] 14:10:00* Test Item Value Reference Range Interpretation Comments CSF MYELIN SHEATH PROTEIN (test code = MYELCSF) 5.2 ng/mL 0.0-1. 2 A Results for this test are for research purposes only by theassay's handkerchief cutter. The performance characteristics ofthis product have not been established. Results should notbe used as a diagnostic procedure without confirmation ofthe diagnosis by another medically established diagnosticproduct or procedure.Performed At: [address] [id number] Sanjai MD Ph:[phone] COMMENTS: PLEASE USE TUBE #3AB COCCI IMMITIS, [id number] 12:09:00* Test Item Value Reference Range Interpretation Comments AB COCCI IMMITIS, CSF (test code = COCCIIMMCSF) COMMENTS: CSFENCEPHALITIS [id number] 12:09:00* Test Item Value Reference Range Interpretation Comments AB ENCEPHALITIS INÉS-IGM (test code = ENCSTMAB) TITER NE GATIVE SOURCE (test code = SOURCE) AB WEST NILE VIRUS IGM (test code = WESNIABIGM) COMMENTS: CSFAB ECHOVIRUS PANEL [id number] 12:09:00* Test Item Value Reference Range Interpretation Comments AB ECHOVIRUS 9 AB CSF (test code = [id number]) AB ECHOVIRUS 11 AB CSF (test code = [id number]) AB ECHOVIRUS 30 AB CSF (test code = [id number]) AB ECHOVIRUS CF (test code = ECHOAB) AB ECHOVIRUS 7 AB CSF (test code = YPAO4RNIJQ) ECHOVIRUS 6 AB CSF (test code = BTGJ7TZN) COMMENTS: CSFWEST NILE VIRUS AB PANEL [id number] 12:09:00* Test Item Value Reference Range Interpretation Comments AB WEST NILE VIRUS IGG CSF (test code = WSNIABGCSF) Equivocal Ne gative AB WEST NILE VIRUS IGM CSF (test code = WSNIABMCSF) Negative Ne gative No detectable West Nile Virus IgM Antibody. If a recentinfection is suspected, another specimen should besubmitted for testing within 7-14 days.Performed At: [address] [id number] Sanjai MD Ph:[phone] COMMENTS: CSFCSF IGG SYNTHESIS [id number] 15:11:00* Test Item Value Reference Range Interpretation Comments CSF ALBUMIN (test code = ALBCSF) CSF IMMUNOGLOBULIN G (test code = IGGCSF) CSF IGG INDEX (test code = IGGINCSF) CSF IGG SYNTHESIS (test code = IGGSYNCSF) CSF IGG/ALBUMIN RATIO (test code = IGGALBCSF) SERUM IMMUNOGLOBULIN G (test code = IGGMS) SERUM ALBUMIN (test code = ALBMS) SERUM ALBUMIN INDEX (test code = ALBINDMS) COMMENTS: PLEASE USE TUBE #3CSF OLIGOCLONAL BAND [id number] 15:11:00* Test Item Value Reference Range Interpretation Comments CSF OLIGOCLONAL BANDS (test code = OLIGCSF) OLIGOCLONAL BAND SR (test code = OLIGSR) COMMENTS: PLEASE USE TUBE #3CSF [id number] 15:11:00* Test Item Value Reference Range Interpretation Comments CSF PROTEIN (test code = PROTECSF) 35.4 mg/dL 0.0-44.0 CSF PREALBUMIN % (test code = PREALB%) 5.2 % 2.2-7.1 CSF ALBUMIN % (test code = ALBCSF%) 55.8 % 56.8-76.4 A CSF SBDLA-2-KAKIBNCN % (test code = A1GCSF%) 3.2 % 1.1-6.6 CSF DILYG-4-GCMNEHZS % (test code = A2GCSF%) 6.5 % 3.0-12.6 CSF BETA GLOBULIN % (test code = BGCSF%) 22.1 % 7.3-17.9 A CSF GAMMA GLOBULIN % (test code = GGCSF%) 7.3 % 3.0-13.0 Protein electrophoresis scan will follow via computer,mail, or shank inspector delivery. CSF M SPIKE % (test code = MSCSF%) Not Observed % Not Observed Performed At: [facility] [place], [place] [id number] Jeremiah Powers MD Ph:[phone] At: [address] [id number] Caba MD Ph:[phone] COMMENTS: PLEASE USE TUBE #3CSF MYELIN SHEATH [id number] 15:11:00* Test Item Value Reference Range Interpretation Comments CSF MYELIN SHEATH PROTEIN (test code = MYELCSF) COMMENTS: PLEASE USE TUBE #3HSV 1 2 BY [id number] 15:11:00* Test Item Value Reference Range Interpretation Comments HSV 1 BY PCR (test code = CUI3UKA) Negative Negative HSV 2 BY PCR (test code = IJJ4COA) Negative Negative This test was developed and its performance characteristicsdetermined by [employer]. It has not been clearedor approved by the U.S. Food and Drug Administration. TheFDA has determined that such clearance or approval is notnecessary. This test is used for clinical purposes. Itshould not be regarded as investigational or research.Performed At: [address] [id number] Caba MD Ph:[phone] BASIC METABOLIC [id number] 08:53:00* Test Item Value Reference Range Interpretation Comments SODIUM (test code = NA) 141 mEq/L 134-147 N POTASSIUM (test code = K) 3.4 mEq/L 3.4-5.0 N CHLORIDE (test code = CL) 108 mEq/L 100-108 N CARBON DIOXIDE (test code = CO2) 25 mEq/L 21-33 N ANION GAP (test code = GAP) 11 0-20 N GLUCOSE (test code = GLU) 95 mg/dL 70-110 N BLOOD UREA NITROGEN (test code = BUN) 14 mg/dL 7-18 N GLOMERULAR FILTRATION RATE (test code = GFR) 81.8 70-80 H Units of measure = ml/min/1.73 m2 CREATININE (test code = CREAT) 0.7 mg/dL 0.6-1.3 N CALCIUM (test code = CA) 9.0 mg/dL 8.0-10.5 N CBC W/AUTO [id number] 07:59:00* Test Item Value Reference Range Interpretation Comments WHITE BLOOD CELL (test code = WBC) 7.76 x10 3/uL 4.5-11.0 N RED BLOOD CELL (test code = RBC) 3.75 x10 6/uL 3.54-5.02 N HEMOGLOBIN (test code = HGB) 11.0 g/dL 11.0-15.0 N HEMATOCRIT (test code = HCT) 34.0 % 33.0-45.0 N MEAN CELL VOLUME (test code = MCV) 90.7 fL 81.0-99.0 N MEAN CELL HGB (test code = MCH) 29.3 pg 27.0-33.0 N MEAN CELL HGB CONCETRATION (test code = MCHC) 32.4 g/dL 33.0-37. 0 L RED CELL DISTRIBUTION WIDTH CV (test code = RDW) 17.6 % 11.5- 14.5 H RED CELL DISTRIBUTION WIDTH SD (test code = RDW-SD) 58.4 fL 37 .0-54.0 H PLATELET COUNT (test code = PLT) 264 x10 3/uL 150-400 N MEAN PLATELET VOLUME (test code = MPV) 11.4 fL 7.0-9.0 H NEUTROPHIL % (test code = NT%) 49.2 % 56.0-77.0 L IMMATURE GRANULOCYTE % (test code = IG%) 0.3 % 0.0-2.0 N LYMPHOCYTE % (test code = LY%) 34.9 % 14.0-32.0 H MONOCYTE % (test code = MO%) 8.0 % 4.8-9.0 N EOSINOPHIL % (test code = EO%) 7.0 % 0.3-3.7 H BASOPHIL % (test code = BA%) 0.6 % 0.0-2.0 N NUCLEATED RBC % (test code = NRBC%) 0.0 % 0-0 N NEUTROPHIL # (test code = NT#) 3.82 x10 3/uL 2.0-7.6 N IMMATURE GRANULOCYTE # (test code = IG#) 0.02 x10 3/uL 0.00-0.03 N LYMPHOCYTE # (test code = LY#) 2.71 x10 3/uL 1.0-3.8 N MONOCYTE # (test code = MO#) 0.62 x10 3/uL 0.1-0.8 N EOSINOPHIL # (test code = EO#) 0.54 x10 3/uL 0.0-0.2 H BASOPHIL # (test code = BA#) 0.05 x10 3/uL 0.0-0.2 N NUCLEATED RBC # (test code = NRBC#) 0.00 x10 3/uL 0.0-0.1 N MANUAL DIFF REQUIRED (test code = MDIFF) NO BASIC METABOLIC [id number] 07:34:00* Test Item Value Reference Range Interpretation Comments SODIUM (test code = NA) 142 mEq/L 134-147 N POTASSIUM (test code = K) 3.4 mEq/L 3.4-5.0 N CHLORIDE (test code = CL) 111 mEq/L 100-108 H CARBON DIOXIDE (test code = CO2) 21 mEq/L 21-33 N ANION GAP (test code = GAP) 13 0-20 N GLUCOSE (test code = GLU) 86 mg/dL 70-110 N BLOOD UREA NITROGEN (test code = BUN) 5 mg/dL 7-18 L GLOMERULAR FILTRATION RATE (test code = GFR) 156.0 70-80 H Units of measure = ml/min/1.73 m2 CREATININE (test code = CREAT) 0.4 mg/dL 0.6-1.3 L CALCIUM (test code = CA) 8.6 mg/dL 8.0-10.5 N CBC W/AUTO [id number] 07:08:00* Test Item Value Reference Range Interpretation Comments WHITE BLOOD CELL (test code = WBC) 6.76 x10 3/uL 4.5-11.0 N RED BLOOD CELL (test code = RBC) 3.26 x10 6/uL 3.54-5.02 L HEMOGLOBIN (test code = HGB) 9.5 g/dL 11.0-15.0 L HEMATOCRIT (test code = HCT) 28.9 % 33.0-45.0 L MEAN CELL VOLUME (test code = MCV) 88.7 fL 81.0-99.0 N MEAN CELL HGB (test code = MCH) 29.1 pg 27.0-33.0 N MEAN CELL HGB CONCETRATION (test code = MCHC) 32.9 g/dL 33.0-37. 0 L RED CELL DISTRIBUTION WIDTH CV (test code = RDW) 17.5 % 11.5- 14.5 H RED CELL DISTRIBUTION WIDTH SD (test code = RDW-SD) 57.0 fL 37 .0-54.0 H PLATELET COUNT (test code = PLT) 227 x10 3/uL 150-400 N MEAN PLATELET VOLUME (test code = MPV) 12.0 fL 7.0-9.0 H NEUTROPHIL % (test code = NT%) 61.0 % 56.0-77.0 N IMMATURE GRANULOCYTE % (test code = IG%) 0.3 % 0.0-2.0 N LYMPHOCYTE % (test code = LY%) 25.9 % 14.0-32.0 N MONOCYTE % (test code = MO%) 7.2 % 4.8-9.0 N EOSINOPHIL % (test code = EO%) 5.3 % 0.3-3.7 H BASOPHIL % (test code = BA%) 0.3 % 0.0-2.0 N NUCLEATED RBC % (test code = NRBC%) 0.0 % 0-0 N NEUTROPHIL # (test code = NT#) 4.12 x10 3/uL 2.0-7.6 N IMMATURE GRANULOCYTE # (test code = IG#) 0.02 x10 3/uL 0.00-0.03 N LYMPHOCYTE # (test code = LY#) 1.75 x10 3/uL 1.0-3.8 N MONOCYTE # (test code = MO#) 0.49 x10 3/uL 0.1-0.8 N EOSINOPHIL # (test code = EO#) 0.36 x10 3/uL 0.0-0.2 H BASOPHIL # (test code = BA#) 0.02 x10 3/uL 0.0-0.2 N NUCLEATED RBC # (test code = NRBC#) 0.00 x10 3/uL 0.0-0.1 N MANUAL DIFF REQUIRED (test code = MDIFF) NO URINALYSIS [id number] 17:14:00* Test Item Value Reference Range Interpretation Comments UA COLOR (test code = COLU) YELLOW YEL/STRAW UA APPEARANCE (test code = APPU) CLEAR CLEAR UA GLUCOSE DIPSTICK (test code = DGLUU) NEGATIVE NEGATIVE UA BILIRUBIN DIPSTICK (test code = BILU) NEGATIVE NEGATIVE UA KETONE DIPSTICK (test code = KETU) 1+ NEGATIVE A UA SPECIFIC GRAVITY (test code = SGU) 1.012 1.005-1.030 N UA BLOOD DIPSTICK (test code = MALIK) NEGATIVE NEGATIVE UA PH DIPSTICK (test code = KOFI) 6.0 5.0-7.0 N UA PROTEIN DIPSTICK (test code = PROU) NEGATIVE NEGATIVE UA UROBILINIOGEN DIPSTICK (test code = URO) 2.0 mg/dL 0.2-1.0 A UA NITRITE DIPSTICK (test code = BELLE) NEGATIVE NEGATIVE UA LEUKOCYTE ESTERASE DIPSTICK (test code = LEUU) NEGATIVE NEGA TIVE UA WBC (test code = WBCU) 0-3 WBC/HPF 0-3 UA RBC (test code = RBCU) NONE SEEN RBC/HPF 0-3 UA BACTERIA (test code = BACU) NONE SEEN /HPF NONE SEEN UA SQUAMOUS CELLS (test code = SQU) NONE SEEN /HPF NONE SEEN UA MUCUS (test code = MUCU) TRACE /LPF NONE SEEN UA CULT [id number] 17:14:00* Test Item Value Reference Range Interpretation Comments UA CULTURE NEEDED? (test code = UACULT) NO, WBC<10 Criteria Culture Chk Criteria not met, Urine Culture cancelled.Previously reported result: NO, WBC>10 & EPI>25 CriteriaEdited by: SAMEERA on 08/15/18:[id number]: UA CULT NEEDED? previously reported as: NO, WBC>10 &EPI>25Criteria Criteria not met, Urine Culture cancelled. CSF CELL [id number] 14:06:00* Test Item Value Reference Range Interpretation Comments CSF TUBE # (test code = BFCSFT) TUBE #3 - CELL COUNT CSF APPEARANCE (test code = APPCSF) CLEAR CLEAR CSF WBC (test code = WBCCSF) 0 MM3 0-5 N CSF RBC (test code = RBCCSF) 0 MM3 0-0 N CSF POLY (test code = POLYCSF) 0 % 0-7 N CSF LYMPHOCYTE (test code = LYMPHCSF) 77 % 28-96 N CSF MONOCYTE (test code = MONOCSF) 23 % 16-56 N CSF EOSINOPHIL (test code = EOSCSF) 0 % CSF BASOPHIL (test code = BASOCSF) 0 % CSF MACROPHAGE (test code = MACCSF) 0 % CSF [id number] 13:05:00* Test Item Value Reference Range Interpretation Comments CSF COLOR (test code = COLCSF) COLORLESS COLORLESS CSF TUBE # (test code = TUBECSF) TUBE #2 - GLU/PROT CSF GLUCOSE (test code = GLUCSF) 58 MG/DL 40-80 N CSF TOTAL PROTEIN (test code = PROTCSF) 37.8 mg/dL 15-45 N COMMENTS: PLEASE USE TUBE #2CSF [id number] 12:54:00* Test Item Value Reference Range Interpretation Comments CSF COLOR (test code = COLCSF) COLORLESS COLORLESS CSF TUBE # (test code = TUBECSF) TUBE #2 - GLU/PROT CSF GLUCOSE (test code = GLUCSF) MG/DL 40-80 CSF TOTAL PROTEIN (test code = PROTCSF) mg/dL 15-45 COMMENTS: PLEASE USE TUBE #2URINALYSIS [id number] 11:24:00* Test Item Value Reference Range Interpretation Comments UA COLOR (test code = COLU) YELLOW YEL/STRAW UA APPEARANCE (test code = APPU) CLEAR CLEAR UA GLUCOSE DIPSTICK (test code = DGLUU) NEGATIVE NEGATIVE UA BILIRUBIN DIPSTICK (test code = BILU) NEGATIVE NEGATIVE UA KETONE DIPSTICK (test code = KETU) 1+ NEGATIVE A UA SPECIFIC GRAVITY (test code = SGU) 1.012 1.005-1.030 N UA BLOOD DIPSTICK (test code = MALIK) NEGATIVE NEGATIVE UA PH DIPSTICK (test code = KOFI) 6.0 5.0-7.0 N UA PROTEIN DIPSTICK (test code = PROU) NEGATIVE NEGATIVE UA UROBILINIOGEN DIPSTICK (test code = URO) 2.0 mg/dL 0.2-1.0 A UA NITRITE DIPSTICK (test code = BELLE) NEGATIVE NEGATIVE UA LEUKOCYTE ESTERASE DIPSTICK (test code = LEUU) NEGATIVE NEGA TIVE UA WBC (test code = WBCU) 0-3 WBC/HPF 0-3 UA RBC (test code = RBCU) NONE SEEN RBC/HPF 0-3 UA BACTERIA (test code = BACU) NONE SEEN /HPF NONE SEEN UA SQUAMOUS CELLS (test code = SQU) NONE SEEN /HPF NONE SEEN UA MUCUS (test code = MUCU) TRACE /LPF NONE SEEN UA CULT [id number] 11:24:00* Test Item Value Reference Range Interpretation Comments UA CULTURE NEEDED? (test code = UACULT) NO, WBC>10 & EPI>25 Criteria Culture Chk Criteria not met, Urine Cult ure cancelled. [id number] 07:52:00* Test Item Value Reference Range Interpretation Comments TROPONIN-I (test code = TROPI) 0.036 ng/mL 0.000-0.045 N Negative: <= 0.045 Positive: >= 0.046 Correlation with serial results, other cardiac markers andclinical findings is necessary to determine the clinicalsignificance of this result. Results using different methodologies should not be comparedto one another as quantitative results may vary by method. BASIC METABOLIC [id number] 04:12:00* Test Item Value Reference Range Interpretation Comments SODIUM (test code = NA) 141 mEq/L 134-147 N POTASSIUM (test code = K) 3.4 mEq/L 3.4-5.0 N CHLORIDE (test code = CL) 109 mEq/L 100-108 H CARBON DIOXIDE (test code = CO2) 26 mEq/L 21-33 N ANION GAP (test code = GAP) 9 0-20 N GLUCOSE (test code = GLU) 101 mg/dL 70-110 N BLOOD UREA NITROGEN (test code = BUN) 8 mg/dL 7-18 N GLOMERULAR FILTRATION RATE (test code = GFR) 97.7 70-80 H Units of measure = ml/min/1.73 m2 CREATININE (test code = CREAT) 0.6 mg/dL 0.6-1.3 N CALCIUM (test code = CA) 8.4 mg/dL 8.0-10.5 N [id number] 04:12:00* Test Item Value Reference Range Interpretation Comments PHOSPHOROUS (test code = PHOS) 2.9 mg/dL 2.5-4.9 N [id number] 04:12:00* Test Item Value Reference Range Interpretation Comments MAGNESIUM (test code = MAG) 2.00 mg/dL 1.8-2.4 N [id number] 04:12:00* Test Item Value Reference Range Interpretation Comments TROPONIN-I (test code = TROPI) 0.031 ng/mL 0.000-0.045 N Negative: <= 0.045 Positive: >= 0.046 Correlation with serial results, other cardiac markers andclinical findings is necessary to determine the clinicalsignificance of this result. Results using different methodologies should not be comparedto one another as quantitative results may vary by method. CBC W/AUTO [id number] 03:56:00* Test Item Value Reference Range Interpretation Comments WHITE BLOOD CELL (test code = WBC) 8.68 x10 3/uL 4.5-11.0 N RED BLOOD CELL (test code = RBC) 3.37 x10 6/uL 3.54-5.02 L HEMOGLOBIN (test code = HGB) 9.9 g/dL 11.0-15.0 L HEMATOCRIT (test code = HCT) 29.6 % 33.0-45.0 L MEAN CELL VOLUME (test code = MCV) 87.8 fL 81.0-99.0 N MEAN CELL HGB (test code = MCH) 29.4 pg 27.0-33.0 N MEAN CELL HGB CONCETRATION (test code = MCHC) 33.4 g/dL 33.0-37. 0 N RED CELL DISTRIBUTION WIDTH CV (test code = RDW) 17.4 % 11.5- 14.5 H RED CELL DISTRIBUTION WIDTH SD (test code = RDW-SD) 55.7 fL 37 .0-54.0 H PLATELET COUNT (test code = PLT) 239 x10 3/uL 150-400 N MEAN PLATELET VOLUME (test code = MPV) 11.3 fL 7.0-9.0 H NEUTROPHIL % (test code = NT%) 65.9 % 56.0-77.0 N IMMATURE GRANULOCYTE % (test code = IG%) 0.3 % 0.0-2.0 N LYMPHOCYTE % (test code = LY%) 25.3 % 14.0-32.0 N MONOCYTE % (test code = MO%) 7.7 % 4.8-9.0 N EOSINOPHIL % (test code = EO%) 0.6 % 0.3-3.7 N BASOPHIL % (test code = BA%) 0.2 % 0.0-2.0 N NUCLEATED RBC % (test code = NRBC%) 0.0 % 0-0 N NEUTROPHIL # (test code = NT#) 5.71 x10 3/uL 2.0-7.6 N IMMATURE GRANULOCYTE # (test code = IG#) 0.03 x10 3/uL 0.00-0.03 N LYMPHOCYTE # (test code = LY#) 2.20 x10 3/uL 1.0-3.8 N MONOCYTE # (test code = MO#) 0.67 x10 3/uL 0.1-0.8 N EOSINOPHIL # (test code = EO#) 0.05 x10 3/uL 0.0-0.2 N BASOPHIL # (test code = BA#) 0.02 x10 3/uL 0.0-0.2 N NUCLEATED RBC # (test code = NRBC#) 0.00 x10 3/uL 0.0-0.1 N MANUAL DIFF REQUIRED (test code = MDIFF) NO [id number] 02:58:00* Test Item Value Reference Range Interpretation Comments TROPONIN-I (test code = TROPI) 0.020 ng/mL 0.000-0.045 N Negative: <= 0.045 Positive: >= 0.046 Correlation with serial results, other cardiac markers andclinical findings is necessary to determine the clinicalsignificance of this result. Results using different methodologies should not be comparedto one another as quantitative results may vary by method. PROCALCITONIN (PCT)2018-08-15 02:16:00* Test Item Value Reference Range Interpretation Comments PROCALCITONIN (PCT) (test code = PROCAL) 0.13 ng/mL 0.00-0.05 H PROCALCITONIN (PCT) NORMAL RANGE (ADULT): <0.05 NG/ML. * a concentration <0.5 ng/mL represents a low risk of severe sepsis and/or septic shock.* a concentration >2 ng/mL represents a high risk of severe sepsis and/or septic shock.Nevertheless, concentrations <0.5 ng/mL do not exclude aninfection, on account of localized infections (withoutsystemic signs) which can be associated with such lowconcentrations, or a systemic infection in its initialstages (< 6 hours). Furthermore, increased procalcitonincan occur without infection. PCT concentrations between 0.5and 2.0 ng/mL should be interpreted taking into account thepatient's history. It is recommended to retest PCT within6-24 hours if any concentrations <2 ng/mL are obtained. - XR CHEST 1 [id number] 02:09:00 FAX: Salbador Dexter MD [phone] [place]: St: ADM Name: TIA CLEMONS [facility] : 07/14/18 44 Age/S: 73/F [address] [place] [address] Unit #: [id number] Loc: [address] [address] Phys: Alfredo June MD Acct: [id number] Dis Date: Status: ADM IN PHONE #: [phone] Exam Date: 08/14/2018150 FAX #: [phone] Reason: Sepsis EXAMS: CPT CODE: [id number] XR CHEST 1 V [id number] Chest, single view dated 08/14/2018 at 23:58 PM. HISTORY: Sepsis. Altered mental status. Comparison is made to a prior study dated 08/14/2018 at 6:12 AM. The heart is normal in size. Considering rotation, the cardiomediastinal shadow is stable. The lungs appear clear. The pulmonary vasculature darien ears normal in caliber. No acute pleural space abnormalities are detected . IMPRESSION: 1. No radiographic evidence of acute card iopulmonary disease. SL: [address] t 020 Reported and signed by: Nj Marrufo M.D. CC: Salbador Lopez MD Technologist: RT Rambo(R) Trnscrd Date/Time/By: 08/15/2018 (208) : By: Raj Orig Print D/T: S: 08/15/2018 (0219) PAGE 1 Signed Report LACTIC [id number] 00:56:00 * Test Item Value Reference Range Interpretation Comments LACTIC ACID (test code = LACT) 1.4 mmol/L 0.4-1.9 N COMPREHENSIVE METABOLIC [id number] 00:52:00* Test Item Value Reference Range Interpretation Comments SODIUM (test code = NA) 140 mEq/L 134-147 N POTASSIUM (test code = K) 3.3 mEq/L 3.4-5.0 L CHLORIDE (test code = CL) 107 mEq/L 100-108 N CARBON DIOXIDE (test code = CO2) 25 mEq/L 21-33 N ANION GAP (test code = GAP) 11 0-20 N GLUCOSE (test code = GLU) 102 mg/dL 70-110 BLOOD UREA NITROGEN (test code = BUN) 8 mg/dL 7-18 GLOMERULAR FILTRATION RATE (test code = GFR) 97.7 70-80 H Units of measure = ml/min/1.73 m2 CREATININE (test code = CREAT) 0.6 mg/dL 0.6-1.3 N TOTAL PROTEIN (test code = PROT) 6.8 g/dL 6.4-8.2 N ALBUMIN (test code = ALB) 3.60 g/dL 3.4-5.0 N CALCIUM (test code = CA) 8.8 mg/dL 8.0-10.5 N BILIRUBIN TOTAL (test code = BILT) 0.60 mg/dL 0.0-1.0 SGOT/AST (test code = AST) 21 IUnit/L 15-37 N SGPT/ALT (test code = ALT) 15 IUnit/L 15-65 N ALKALINE PHOSPHATASE TOTAL (test code = ALKP) 74 IUnit/L 20-125 N [id number] 00:52:00* Test Item Value Reference Range Interpretation Comments LIPASE (test code = LIP) 57 IUnit/L 73-393 L PROTHROMBIN [id number] 00:38:00* Test Item Value Reference Range Interpretation Comments PROTHROMBIN TIME PATIENT (test code = PTP) 13.3 SECONDS 9.3-12.9 H INTERNATIONAL NORMAL RATIO (test code = INR) 1.2 0.8-1.2 N TARGET INR BY INDICATION Indication INR1. Prophylaxis of venous thrombosis 2.0 - 3.0 (orthopedic surgery), Prophylaxis of venous thrombosis (other than high-risk surgery), Treatment of Deep Vein Thrombosis/Pulmonary Embolism, Prevention of systemic embolism - Tissue heart valves, Acute Myocardial Infarction (to prevent systemic embolism), Valvular heart disease, Atrial Fibrillation, Bileaflet mechanical valve in aortic position.2. Mechanical prosthetic valves (high risk), 2.5 - 3.5 Presence of Lupus Anticoagulant or Antiphospholipid Antibodies, Prevention of systemic embolism - Acute Myocardial Infarction (to prevent recurrent infarct). THROMBOPLASTIN TIME [id number] 00:38:00* Test Item Value Reference Range Interpretation Comments THROMBOPLASTIN TIME PARTIAL (test code = PTT) 31.4 Seconds 25.0-39. 5 N Therapeutic Range: 50.4 - 88.3 Seconds Effective 08/11/2018 CBC W/AUTO [id number] 00:25:00* Test Item Value Reference Range Interpretation Comments WHITE BLOOD CELL (test code = WBC) 9.09 x10 3/uL 4.5-11.0 N RED BLOOD CELL (test code = RBC) 3.53 x10 6/uL 3.54-5.02 L HEMOGLOBIN (test code = HGB) 10.2 g/dL 11.0-15.0 L HEMATOCRIT (test code = HCT) 31.2 % 33.0-45.0 L MEAN CELL VOLUME (test code = MCV) 88.4 fL 81.0-99.0 N MEAN CELL HGB (test code = MCH) 28.9 pg 27.0-33.0 N MEAN CELL HGB CONCETRATION (test code = MCHC) 32.7 g/dL 33.0-37. 0 L RED CELL DISTRIBUTION WIDTH CV (test code = RDW) 17.4 % 11.5- 14.5 H RED CELL DISTRIBUTION WIDTH SD (test code = RDW-SD) 56.6 fL 37 .0-54.0 H PLATELET COUNT (test code = PLT) 261 x10 3/uL 150-400 N MEAN PLATELET VOLUME (test code = MPV) 11.8 fL 7.0-9.0 H NEUTROPHIL % (test code = NT%) 77.3 % 56.0-77.0 H IMMATURE GRANULOCYTE % (test code = IG%) 0.3 % 0.0-2.0 N LYMPHOCYTE % (test code = LY%) 16.3 % 14.0-32.0 N MONOCYTE % (test code = MO%) 5.7 % 4.8-9.0 N EOSINOPHIL % (test code = EO%) 0.2 % 0.3-3.7 L BASOPHIL % (test code = BA%) 0.2 % 0.0-2.0 N NUCLEATED RBC % (test code = NRBC%) 0.0 % 0-0 N NEUTROPHIL # (test code = NT#) 7.02 x10 3/uL 2.0-7.6 N IMMATURE GRANULOCYTE # (test code = IG#) 0.03 x10 3/uL 0.00-0.03 N LYMPHOCYTE # (test code = LY#) 1.48 x10 3/uL 1.0-3.8 N MONOCYTE # (test code = MO#) 0.52 x10 3/uL 0.1-0.8 N EOSINOPHIL # (test code = EO#) 0.02 x10 3/uL 0.0-0.2 N BASOPHIL # (test code = BA#) 0.02 x10 3/uL 0.0-0.2 N NUCLEATED RBC # (test code = NRBC#) 0.00 x10 3/uL 0.0-0.1 N MANUAL DIFF REQUIRED (test code = MDIFF) NO DRUGS OF ABUSE SCREEN [id number] 17:55:00* Test Item Value Reference Range Interpretation Comments URN COCAINE (test code = COCAURN) NEGATIVE NEGATIVE URN CANNABINOIDS (test code = CANNABURN) NEGATIVE NEGATIVE URN AMPHETAMINE (test code = AMPHETURN) NEGATIVE NEGATIVE URN BARBITURATE (test code = BARBITURN) NEGATIVE NEGATIVE URN BENZODIAZEPINE (test code = BENZOURN) NEGATIVE NEGATIVE Cut-off value:200 ng/mL URN OPIATES (test code = OPIATURN) NEGATIVE NEGATIVE Cut-off value:2000 ng/mL URN PHENCYCLIDINE (PCP) (test code = PHENCURN) NEGATIVE NEGATIV E Cutoffs:Barbiturates 200 ng/mLBenzodiazepines 200 ng/mLTHC Cannabinoids 50 ng/mLOpiates(Morphine) 2000 ng/mLAmphetamine 1000 ng/mLCocaine 300 ng/mLPCP phencyclidine 25 ng/mL Unconfirmed screening results shouldnot be used for non-medical purposes. HGBA1C%2018-08-14 17:13:00* Test Item Value Reference Range Interpretation Comments HGBA1C% (test code = HGBA1C%) 5.4 %A1C 4.8-6.0 N LIPID PROFILE (CORONARY RISK)2018-08-14 17:10:00* Test Item Value Reference Range Interpretation Comments TRIGLYCERIDES (test code = TRIG) 92 mg/dL 40-150 N CHOLESTEROL (test code = CHOL) 140 mg/dL <200 CHOLESTEROL/HDL RATIO (test code = CHOLHDL) 2.30 RATIO 3.27-4.44 L RISK ASSOCIATED WITH CHOL/HDL RATIOS: RISK MALE FEMALE1/2 AVERAGE 3.43 3.27AVERAGE 4.97 4.442X AVERAGE 9.55 7.053X AVERAGE 23.39 11.04 NOTE THAT THE REFERENCE VALUE IS RELATEDTO RISK LEVELS RECOMMENDED BY THE NATL.HEART, LUNG, AND BLOOD INST. HDL CHOLESTEROL (test code = HDL) 61.0 mg/dL 39-96 N LIPOPROTEIN LDL (test code = LDL) 69 mg/dL 0-100 N <100 [id number] NEAR OPTIMAL/ABOVE [id number] HIGH>LX=544 VERY HIGH*Guidelines provided by the National Cholesterol EducationProgram Adult Treatment Panel III - MRI BRAIN W/O [id number] 15:54:00 FAX: Salbador Dexter MD [phone] [place]: St: ADM FAX: Vladislav Barrera NP [phone] Name: FORESTTIA [facility] : 1945 Age/S: 73/F [address] [place] [address] Blvd Unit #: [id number] Loc: G.658 [place] [address] Phys: Vladislav Barrera NP Acct: [id number] Dis Date: Status: ADM IN PHONE #: [phone] Exam Date: 08/14/2018 1425 FAX #: [phone] Reason: AMS EXAMS: CPT CODE: [id number] MRI BRAIN W/O CONT 10965 Study: - MRI BRAIN W/O CONT 08/14/2018 1:27 PM Patient Name: TIA GARG MR: [id number] : 1945; Age: 73 years y/o Female Ordering Physician: Vladislav Barrera NP Clinical Indic ation: Acute encephalopathy AMS Comparison: August 14, 2018 CT head TECHNIQUE: Multiplanar noncontrast MRI of the brain was performed on a 1.5 Jacey magnet. FINDINGS: The images are degraded by patient motion. BRAIN PARENCHYMA: Ge neral: The brain volume and ventricle size are appropriate for age. Confl uent and scattered FLAIR hyperintensities in the supratentorial white monty er likely represent chronic small vessel ischemic changes. Ventri cles: Normal size and appearance. Acute Findings: No evidence of a cute intracranial hemorrhage, mass, mass effect, midline shift, or extra-a xial fluid collection. Diffusion Weighted Images: No evidence of r estricted diffusion to suggest acute or subacute ischemia. G radient Images: No abnormal hypointense signal to suggest old hemorrhage. Midline Structures: The pituitary gland, corpus callosum, and remaining midline structures are normal. VASCULATURE: Arterial: The major intracranial arterial flow voids are present. Venous: The dural venous sinus flow voids are grossly normal. PARANASAL SINUSES: The visualized portions of the paranasal sinuses are clear. P AGE 1 Signed Report (CONTINUED) FAX: Salbador Dexter MD [phone] [place]: St: [facility] FAX: Vladislav Guerin NP [phone] Name: TIA GARG [facility] : 1945 Age/S: 73/F [address] [place] [address] Unit #: [id number] Loc: G.658 [place] [address] Phys: Vladislav Barrera NP Acct: [id number] Dis Date: Status: ADM IN PHONE #: [phone] Exam Date: 08/14/2018 1425 FAX #: [phone] Reason: AMS EXAMS: CPT CODE: [id number] MRI BRAIN W/O CONT 69383 < Continued> MASTOIDS: Clear. SOFT TISSUES AND ORBITS: The visualized portions are normal. IMPRESSION: Exam is limited by patient motion. 1. No acute stroke, hemorrhage, mass, or mass effect. 2. Moderate chronic small vessel ischemic changes in the supratentorial white matter. SL: [id number] at 8512 Reported and signed by: Hector Meeks M.D. CC: Salbador Lopez MD; Vladislav Barrera NP Technologist: RT Sangeetha(R)(CT) Trnmard Date/Time/By: 08/14/2018 (4109) : By: [email or web address] Orig Print D/T: S: 08/14/2018 (9223) PAGE 2 Signed Report URINALYSIS [id number] 09:09:00* Test Item Value Reference Range Interpretation Comments UA COLOR (test code = COLU) YELLOW YEL/STRAW UA APPEARANCE (test code = APPU) CLOUDY CLEAR A UA GLUCOSE DIPSTICK (test code = DGLUU) NEGATIVE NEGATIVE UA BILIRUBIN DIPSTICK (test code = BILU) NEGATIVE NEGATIVE UA KETONE DIPSTICK (test code = KETU) NEGATIVE NEGATIVE UA SPECIFIC GRAVITY (test code = SGU) 1.046 1.005-1.030 H UA BLOOD DIPSTICK (test code = MALIK) NEGATIVE NEGATIVE UA PH DIPSTICK (test code = KOFI) 5.0 5.0-7.0 N UA PROTEIN DIPSTICK (test code = PROU) NEGATIVE NEGATIVE UA UROBILINIOGEN DIPSTICK (test code = URO) 0.2 mg/dL 0.2-1.0 UA NITRITE DIPSTICK (test code = BELLE) NEGATIVE NEGATIVE UA LEUKOCYTE ESTERASE DIPSTICK (test code = LEUU) NEGATIVE NEGA TIVE UA WBC (test code = WBCU) 4-9 WBC/HPF 0-3 A UA RBC (test code = RBCU) 4-10 RBC/HPF 0-3 UA BACTERIA (test code = BACU) TRACE /HPF NONE SEEN UA SQUAMOUS CELLS (test code = SQU) 11-25 /HPF NONE SEEN A UA MUCUS (test code = MUCU) TRACE /LPF NONE SEEN [id number] 07:58:00* Test Item Value Reference Range Interpretation Comments AMMONIA (test code = AMM) 28 umol/L 0-35 N - CT CEREBRAL PERF [id number] 07:01:00 [facility] 1945 Age/S: 73 / F [address] [place] [address] Unit #: [id number] Loc: [place] [address] Phys: Nhi Denis MD Acct: [id number] Dis Date: Status: REG ER PHONE #: [phone] Exam Date: 08/14/2018610 FAX #: [phone] Reason: ams EXAMS: CPT CODE: [id number] CT CEREBRAL PERF ANAL 22383 EXAM: BRAIN CTA WITH CONTRAST EXAM: NECK CTA WITH CONTRAST EXAM: CT PERFUSION INDICATION: Aphasia. COMPARISON: CT head of the same date TECHNIQUE Rapid acquisition spiral images were obtained between the aortic arch and the cranial vertex during intravenous contrast infusion to reconstruct axial images and angiographic 3D maximum intensity projections (MIP). This exam was performed according to our departmental dose optimization program which includes automated exposure control, adjustment of the mA and/or kV according to patient size and/or use of iterative reconstruction technique. Perfusion parametric maps were also generated using rapid software. CT Radiation Dose DLP 3143.81 mGy-cm. Stenosis evaluation reported in compliance with NASCET criteria. FINDINGS: CT head angiogram: No high-grade intracranial arterial occlusion, flow-limiting stenosis, vascular malformation or aneurysm. Minimal calcifications along the bilateral carotid siphons resulting in no significant luminal narrowing. Mild right distal M1 atherosclerotic stenosis may be present. CT neck angiogram: The left carotid bifurcation demonstrates no significant stenosis. The right carotid bifurcation demonstrates no significant stenosis. The origins of the bilateral common carotids, common carotid arteries PAGE 1 Signed Report (CONTINUED) Name: TIA GARG [place] : 1945 Age/S: 73 / F [address] [place] [address] Unit #: [id number] Loc: [place] [address] Phys: Nhi Denis MD Acct: [id number] Dis Date: Status: REG ER PHONE #: [phone] Exam Date: 08/14/2018610 FAX #: [phone] Reason: ams EXAMS: CPT CODE: [id number] CT CEREBRAL PERF ANAL 78991 <Continued> and distal internal carotid arteries are widely patent. Arch anatomy is conventional. Note is made of short segment mild focal narrowing of the descending thoracic aorta just distal to the left subclavian artery with increased diameter of the distal aorta measuring up to 3 cm. The vertebral arteries right dominant. The origins of the vertebral arteries are widely patent. The vertebral arteries are widely patent along their cervical course. No evidence of wall irregularity or dissection is noted in the neck vessels. CT PERFUSION: Motion slightly limits evaluation. Perfusion imaging demonstrates no evidence of decreased CBF or CBV. Nonspecific bilateral symmetric appearing frontal increased Tmax is identified which may represent artifact. IMPRESSION: No intracranial major branch occlusion, flow limiting stenosis, vascular malformation or aneurysm. Normal carotid bifurcations in the neck. The vertebral arteries are patent. Perfusion imaging demonstrates no evidence to suggest acute large territory infarct or penumbra. Nonspecific bifrontal increased Tmax is noted, nonspecific and could represent artifact with hypoperfusion excluded. Please note small basal ganglia lacunar infarct, posterior fossa and brainstem infarcts cannot be excluded from CT perfusion examination. MRI examination with diffusion-weighted imaging provides higher sensitivity Nonspecific short segment mild focal stenosis of the distal aorta just distal to the subclavian takeoff. Mild coarctation of the aorta PAGE 2 Signed Report (CONTINUED) Name: TIA GARG [facility] : 0 1945 Age/S: 73 / F [address] [place] [address] Unit #: [id number] Loc: [place] [address] Phys: Marquis Denis MD Acct: [id number] Dis D ate: Status: REG ER PHONE #: Exam Date: 08/14/2018610 FAX #: [phone] Reason: ams EXAMS: CPT CODE: [id number] CT CEREBRAL PERF ANAL 38193 <Continued> remains the differential. Findings (neurovascular) were discussed with Dr. Walker, ER physician at 6:59 AM on 08/14/2018. at 0701 Reported and signed by: Cari Huggins M.D. CC: Nhi Denis MD Technologist:Love Macias, RT(R)(CT); . CTDI: DLP: Trnscb Date/Time: 08/14/2018 (700) [email or web address] Orig Print D/T: S: 08/14/2018 (07) CTDI: DLP: PAGE 3 Signed Report - CT ANGIO [id number] 07:01:00 Name: TIA GARG [facility] [place] : 1945 Age/S: 73 / F [address] Unit #: [id number] Loc: [place] [address] Phys: Nhi Denis MD Acct: [id number] Dis Date: Status: REG ER PHONE #: [phone] Exam Date: 08/14/2018610 FAX #: [phone] Reason: ams EXAMS: CPT CODE: [id number] CT ANGIO NECK 59351 EXAM: BRAIN CTA WITH CONTRAST EXAM: NECK CTA WITH CONTRAST EXAM: CT PERFUSION INDICATION: Aphasia. COMPARISON: CT head of the same date TECHNIQUE Rapid acquisition spiral images were obtained between the aortic arch and the cranial vertex during intravenous contrast infusion to reconstruct axial images and angiographic 3D maximum intensity projections (MIP). This exam was performed according to our departmental dose optimization program which includes automated exposure control, adjustment of the mA and/or kV according to patient size and/or use of iterative reconstruction technique. Perfusion par ametric maps were also generated using rapid software. CT Radiat ion Dose DLP 3143.81 mGy-cm. Stenosis evaluation reported in compl iance with NASCET criteria. FINDINGS: CT hea d angiogram: No high-grade intracranial arterial occlusion, flow-l imiting stenosis, vascular malformation or aneurysm. Minimal calcificatio ns along the bilateral carotid siphons resulting in no significant luminal narrowing. Mild right distal M1 atherosclerotic stenosis may be pr esent. CT neck angiogram: The left carotid bifurcati on demonstrates no significant stenosis. The right carotid bifurc ation demonstrates no significant stenosis. The origins of the harrison ateral common carotids, common carotid arteries PAGE 1 Signed Report (CONTINUED) Name: [facility] [place] : 1945 Age/S: 73 / F [address] [facility] Unit #: [id number] Loc: [place] [address] Phys: Nhi Denis MD Acct: [id number] Dis Date: Status: REG ER PHONE #: [phone] Exam Date: 2018 FAX #: [phone] Reason: ams EXAMS: CPT CODE: [id number] CT ANGIO NECK 53630 <Continued> and distal internal carotid arteries are widely patent. Arch anatomy is conventional. Note is made of short segment mild focal narrowing of the descending thoracic aorta just distal to the left subclavian artery with increased diameter of the distal aorta measuring up to 3 cm. The vertebral arteries right dominant. The origins of the vertebral arteries are widely patent. The vertebral arteries are widely patent along their cervical course. No evidence of wall irregularity or dissection is noted in the neck vessels. CT PERFUSION: Motion slightly limits evaluation. Perfusion imaging demonstrates no evidence of decreased CBF or CBV. Nonspecific bilateral symmetric appearing frontal increased Tmax is identified which may represent artifact. IMPRESSION: No intracranial major branch occlusion, flow limiting stenosis, vascular malformation or aneurysm. Normal carotid bifurcations in the neck. The vertebral arteries are patent. Perfusion imaging demonstrates no evidence to suggest acute large territory infarct or penumbra. Nonspecific bifrontal increased Tmax is noted, nonspecific and could represent artifact with hypoperfusion excluded. Please note small basal ganglia lacunar infarct, posterior fossa and brainstem infarcts cannot be excluded from CT perfusion examination. MRI examination with diffusion-weighted imaging provides higher sensitivity Nonspecific short segment mild focal stenosis of the distal aorta just distal to the subclavian takeoff. Mild coarctation of the aorta PAGE 2 Signed Report (CONTINUED) Name: TIA GARG [facility] [place] : 0 1945 Age/S: 73 / F [address] [place] [address] Unit #: [id number] Loc: [place] [address] Phys: Marquis Denis MD Acct: [id number] Dis D ate: Status: REG ER PHONE #: Exam Date: 08/14/2018610 FAX #: [phone] Reason: ams EXAMS: CPT CODE: [id number] CT ANGIO NECK [address]45[address] <Continued> remains the differential. Findings (neurovascular) were discussed with Dr. Walker, ER physician at 6:59 AM on 08/14/2018. at 0701 Reported and signed by: Cari Huggins M.D. CC: Nhi Denis MD Technologist:Love Macias, RT(R)(CT); . CTDI: DLP: Trnscb Date/Time: 08/14/2018 (700) [email or web address] Orig Print D/T: S: 08/14/2018 (07) CTDI: DLP: PAGE 3 Signed Report - CT HEAD/BRAIN W/O [id number] 06:38:00 Name: TIA GARG [facility] [place] : 1945 Age/S: 73 / F [address] [place] [address] Unit #: [id number] Loc: [place] [address] Phys: Yoselyn Denis MD Acct: [id number] Di s Date: Status: REG ER PHONE #: Exam Date: 08/14/2018 06 FAX #: Reason: GENERAL WEAKNESS, APHASIC EXAMS: CPT CODE: [id number] CT HEAD/BRAIN W/O CONT 21214 CT head without c ontrast . CLINICAL HISTORY: Aphasia TECHNIQUE: Axial noncontrast CT images through the head were obtained. This exam w as performed according to our departmental dose optimization program which includes automated exposure control, adjustment of the mA and/or kV accor ding to patient size and/or use of iterative reconstruction technique. Co bryson and sagittal reformats were provided. DLP:682.01 COMP ARISON: None available. FINDINGS: Patient motion sli ghtly degrades exam quality. There is no hemorrhage, extra-axial c ollection, mass, hydrocephalus, or midline shift. Scattered perive ntricular and deep white matter hypodensities are noted, nonspecific but c ommonly seen in the setting of chronic ischemic small vessel changes. Int racranial vascular calcifications are noted. The visualized paranasal sinuses and mastoid air cells are well aerated. The calvarium an d skull base are intact. IMPRESSION: No acute hemorrhage, mass effect or overt subacute large ischemic territory infar ct changes. Mild chronic ischemic small vessel changes. If concern for acute pathology persists consider further evaluation with MRI. Negative acute findings were relayed to Dr. Denis by Dr. Marrufo at approximately 6:28 AM on 08/14/2018. PAGE 1 Signed Report (CONTINUED) N [place]: TIA GARG [facility] : 0 1945 Age/S: 73 / F [address] [facility] Unit #: [id number] Loc: [place] [id number] Phys: Marquis Denis MD Acct: [id number] Dis D ate: Status: REG ER PHONE #: [phone] Exam Date: 08/14/2018 06 FAX #: [phone] Reason: GENERAL WEAKNESS, APHASIC EXAMS: CPT CODE: [id number] CT HEAD/BRAIN W/O CONT 88856 <Continued> at 0638 Reported and signed by: Cari Huggins M.D. CC: Nhi Denis MD Technologist:Love Macias, RT(R)(CT); . CTDI: DLP: Trnscb Date/Time: 08/14/2018 (637) [email or web address] Orig Print D/T: S: 08/14/2018 (0641) CTDI: DLP: PAGE 2 Signed Report - XR CHEST 1 [id number] 06:31:00 FAX: Nhi Denis MD [phone] [place]: St: REG Name: TIA CLEMONS [facility] : [birth year] Age/S: 73/F [address] [facility] Unit #: [id number] Loc: G.ERS2 [place] [address] Phys: Nhi Denis MD Acct: [id number] Dis Date: Status: REG ER PHONE #: [phone] Exam Date: 08/14/2018624 FAX #: [phone] Reason: ams EXAMS: CPT CODE: [id number] XR CHEST 1 V 74957 Chest, single view dated 08/14/2018. HISTORY: Altered mental status. Code narrow. No prior studies are available for comparison. The heart is normal in size. Atherosclerotic calcification is noted in the aortic arch. The lungs appear clear. The pulmonary vasculature is normal in caliber. No acute pleural space abnormalities are detected. IMPRESSION: 1. No radiographic evidence of acute cardiopulmonary disease. SL: 131 at 0631 Reported and signed by: Nj Marrufo M.D. CC: Nhi Denis MD Technologist: RT Gem(R) Trnscrd Date/Time/By: 08/14/2018 (630) : By: Raj Orig Print D/T: S: 08/14/2018 (0634) PAGE 1 Signed Report TROPONIN-I [id number] 06:29:00* Test Item Value Reference Range Interpretation Comments TROPONIN-I RAPID (test code = TROPIRAP) 0.00 ng/mL 0.00-0.08 N Performed by certified dump motor operator at [facility] Negative: <= 0.08 Positive: >= 0.09An elevated troponin value alone is not sufficient todiagnose a myocardial infarction. Rather, the patient sclinical presentation (history, physical exam) and ECGshould be used in conjunction with troponin in thediagnostic evaluation of suspected myocardial infarction. Aserial sampling protocol is recommended to facilitate the identification of temporal changes in troponin levels characteristic of HI. CHEMISTRY 8 [id number] 06:22:00* Test Item Value Reference Range Interpretation Comments ISTAT-SODIUM (test code = NAP) MMOL/L 134-147 ISTAT-POTASSIUM (test code = KP) MMOL/L 3.4-5.0 ISTAT-CHLORIDE (test code = CLP) MMOL/L 100-108 ISTAT CARBON DIOXIDE (test code = ISTAT-CO2) mmol/L 21-33 N ISTAT CALCIUM IONIZED (test code = ISTAT-WINIFRED) MG/DL 1.12-1.3 2 ISTAT-GLUCOSE (test code = GLUP) MG/DL 70-110 H ISTAT-BUN (test code = BUNP) MG/DL 7-18 H BEDSIDE CREATININE (test code = CREATBED) MG/DL 0.6-1.3 N GLOMERULAR FILTRATION RATE POC (test code = GFRBED) 87 ML/MIN CHEMISTRY 8 [id number] 06:22:00* Test Item Value Reference Range Interpretation Comments ISTAT-SODIUM (test code = NAP) 141 MMOL/L 134-147 N ISTAT-POTASSIUM (test code = KP) 4.1 MMOL/L 3.4-5.0 N ISTAT-CHLORIDE (test code = CLP) 106 MMOL/L 100-108 N Performed by certified dump motor operator at [facility] ISTAT CARBON DIOXIDE (test code = ISTAT-CO2) 24.0 mmol/L 21-33 N ISTAT CALCIUM IONIZED (test code = ISTAT-WINIFRED) 1.28 MG/DL 1.12-1.3 2 N ISTAT-GLUCOSE (test code = GLUP) 143 MG/DL 70-110 H ISTAT-BUN (test code = BUNP) 19 MG/DL 7-18 H BEDSIDE CREATININE (test code = CREATBED) 0.7 MG/DL 0.6-1.3 N GLOMERULAR FILTRATION RATE POC (test code = GFRBED) 87 ML/MIN COMPREHENSIVE METABOLIC [id number] 06:18:00* Test Item Value Reference Range Interpretation Comments SODIUM (test code = NA) 140 mEq/L 134-147 N POTASSIUM (test code = K) 4.0 mEq/L 3.4-5.0 N CHLORIDE (test code = CL) 109 mEq/L 100-108 H CARBON DIOXIDE (test code = CO2) 23 mEq/L 21-33 N ANION GAP (test code = GAP) 12 0-20 N GLUCOSE (test code = GLU) 142 mg/dL 70-110 H BLOOD UREA NITROGEN (test code = BUN) 18 mg/dL 7-18 N GLOMERULAR FILTRATION RATE (test code = GFR) 70.1 70-80 N Units of measure = ml/min/1.73 m2 CREATININE (test code = CREAT) 0.8 mg/dL 0.6-1.3 N TOTAL PROTEIN (test code = PROT) 7.5 g/dL 6.4-8.2 N ALBUMIN (test code = ALB) 4.10 g/dL 3.4-5.0 N CALCIUM (test code = CA) 9.4 mg/dL 8.0-10.5 N BILIRUBIN TOTAL (test code = BILT) 0.40 mg/dL 0.0-1.0 N SGOT/AST (test code = AST) 20 IUnit/L 15-37 N SGPT/ALT (test code = ALT) 17 IUnit/L 15-65 N ALKALINE PHOSPHATASE TOTAL (test code = ALKP) 85 IUnit/L 20-125 N [id number] 06:18:00* Test Item Value Reference Range Interpretation Comments MAGNESIUM (test code = MAG) 2.00 mg/dL 1.8-2.4 N COMPREHENSIVE METABOLIC [id number] 06:17:00* Test Item Value Reference Range Interpretation Comments SODIUM (test code = NA) 140 mEq/L 134-147 N POTASSIUM (test code = K) 4.0 mEq/L 3.4-5.0 N CHLORIDE (test code = CL) 109 mEq/L 100-108 H CARBON DIOXIDE (test code = CO2) 23 mEq/L 21-33 N ANION GAP (test code = GAP) 12 0-20 N GLUCOSE (test code = GLU) 142 mg/dL 70-110 H BLOOD UREA NITROGEN (test code = BUN) 18 mg/dL 7-18 N GLOMERULAR FILTRATION RATE (test code = GFR) 70.1 70-80 N Units of measure = ml/min/1.73 m2 CREATININE (test code = CREAT) 0.8 mg/dL 0.6-1.3 N TOTAL PROTEIN (test code = PROT) g/dL 6.4-8.2 ALBUMIN (test code = ALB) 4.10 g/dL 3.4-5.0 N CALCIUM (test code = CA) 9.4 mg/dL 8.0-10.5 N BILIRUBIN TOTAL (test code = BILT) mg/dL 0.0-1.0 SGOT/AST (test code = AST) 20 IUnit/L 15-37 N SGPT/ALT (test code = ALT) 17 IUnit/L 15-65 N ALKALINE PHOSPHATASE TOTAL (test code = ALKP) IUnit/L 20-125 [id number] 06:17:00* Test Item Value Reference Range Interpretation Comments MAGNESIUM (test code = MAG) 2.00 mg/dL 1.8-2.4 N PROTHROMBIN [id number] 06:01:00* Test Item Value Reference Range Interpretation Comments PROTHROMBIN TIME PATIENT (test code = PTP) 12.0 SECONDS 9.3-12.9 N INTERNATIONAL NORMAL RATIO (test code = INR) 1.1 0.8-1.2 N TARGET INR BY INDICATION Indication INR1. Prophylaxis of venous thrombosis 2.0 - 3.0 (orthopedic surgery), Prophylaxis of venous thrombosis (other than high-risk surgery), Treatment of Deep Vein Thrombosis/Pulmonary Embolism, Prevention of systemic embolism - Tissue heart valves, Acute Myocardial Infarction (to prevent systemic embolism), Valvular heart disease, Atrial Fibrillation, Bileaflet mechanical valve in aortic position.2. Mechanical prosthetic valves (high risk), 2.5 - 3.5 Presence of Lupus Anticoagulant or Antiphospholipid Antibodies, Prevention of systemic embolism - Acute Myocardial Infarction (to prevent recurrent infarct). THROMBOPLASTIN TIME [id number] 06:01:00* Test Item Value Reference Range Interpretation Comments THROMBOPLASTIN TIME PARTIAL (test code = PTT) 29.2 Seconds 25.0-39. 5 N Therapeutic Range: 50.4 - 88.3 Seconds Effective 08/11/2018 CBC W/AUTO [id number] 05:52:00* Test Item Value Reference Range Interpretation Comments WHITE BLOOD CELL (test code = WBC) 9.72 x10 3/uL 4.5-11.0 N RED BLOOD CELL (test code = RBC) 3.69 x10 6/uL 3.54-5.02 N HEMOGLOBIN (test code = HGB) 10.8 g/dL 11.0-15.0 L HEMATOCRIT (test code = HCT) 32.9 % 33.0-45.0 L MEAN CELL VOLUME (test code = MCV) 89.2 fL 81.0-99.0 N MEAN CELL HGB (test code = MCH) 29.3 pg 27.0-33.0 N MEAN CELL HGB CONCETRATION (test code = MCHC) 32.8 g/dL 33.0-37. 0 L RED CELL DISTRIBUTION WIDTH CV (test code = RDW) 17.4 % 11.5- 14.5 H RED CELL DISTRIBUTION WIDTH SD (test code = RDW-SD) 56.5 fL 37 .0-54.0 H PLATELET COUNT (test code = PLT) 272 x10 3/uL 150-400 N MEAN PLATELET VOLUME (test code = MPV) 11.6 fL 7.0-9.0 H NEUTROPHIL % (test code = NT%) 74.2 % 56.0-77.0 N IMMATURE GRANULOCYTE % (test code = IG%) 0.4 % 0.0-2.0 N LYMPHOCYTE % (test code = LY%) 19.2 % 14.0-32.0 N MONOCYTE % (test code = MO%) 4.0 % 4.8-9.0 L EOSINOPHIL % (test code = EO%) 1.7 % 0.3-3.7 N BASOPHIL % (test code = BA%) 0.5 % 0.0-2.0 N NUCLEATED RBC % (test code = NRBC%) 0.0 % 0-0 N NEUTROPHIL # (test code = NT#) 7.20 x10 3/uL 2.0-7.6 N IMMATURE GRANULOCYTE # (test code = IG#) 0.04 x10 3/uL 0.00-0.03 H LYMPHOCYTE # (test code = LY#) 1.87 x10 3/uL 1.0-3.8 N MONOCYTE # (test code = MO#) 0.39 x10 3/uL 0.1-0.8 N EOSINOPHIL # (test code = EO#) 0.17 x10 3/uL 0.0-0.2 N BASOPHIL # (test code = BA#) 0.05 x10 3/uL 0.0-0.2 N NUCLEATED RBC # (test code = NRBC#) 0.00 x10 3/uL 0.0-0.1 N MANUAL DIFF REQUIRED (test code = MDIFF) NO Troponin [id number] 12:41:00* Test Item Value Reference Range Interpretation Comments Troponin I (test code = ZQQ1318) 0.005 0-0.300 [facility] [id number] 20:40:00* Test Item Value Reference Range Interpretation Comments Urine WBC (test code = 5821-4) 0-5 0-5 [facility] ASL3083-14-89 20:40:00* Test Item Value Reference Range Interpretation Comments Urine RBC (test code = 45712-5) 0-5 0-5 [facility] Nawfffyu1935-49-76 20:40:00* Test Item Value Reference Range Interpretation Comments Urine Bacteria (test code = 73413-2) FEW NONE [facility] Epithelial Eurip6087-84-46 20:40:00 * Test Item Value Reference Range Interpretation Comments Urine Epithelial Cells (test code = 33263-0) MODERATE NONE [facility] Chdvs6310-05-36 20:32:00* Test Item Value Reference Range Interpretation Comments Urine Color (test code = 5778-6) YELLOW YELLOW [facility] Ygyknsq5098-42-38 20:32:00* Test Item Value Reference Range Interpretation Comments Urine Clarity (test code = 63960-0) HAZY CLEAR [facility] CenterU[facility] Specific Oenwrkm5260-98-81 20:32:00 * Test Item Value Reference Range Interpretation Comments Urine Specific [place] (test code = 5811-5) 1.005 1.010-1.02 5 L [facility] Center[facility] fU0673-87-11 20:32:00* Test Item Value Reference Range Interpretation Comments Urine pH (test code = 80600-2) 6 5-7 [facility] Leukocyte Rdifmhjz9613-38-26 20:32:00* Test Item Value Reference Range Interpretation Comments Urine Leukocyte Esterase (test code = 5799-2) NEGATIVE NEGATIVE [facility] Center[facility] Emanbms6639-20-26 20:32:00* Test Item Value Reference Range Interpretation Comments Urine Nitrite (test code = 62243-7) NEGATIVE NEGATIVE [facility] Dyvdelv7617-86-97 20:32:00* Test Item Value Reference Range Interpretation Comments Urine Protein (test code = 5804-0) NEGATIVE NEGATIVE [facility] CenterU[facility] Glucose (UA)2018-01-04 20:32:00* Test Item Value Reference Range Interpretation Comments Urine Glucose (UA) (test code = 2349-9) NEGATIVE NEGATIVE [facility] CenterU[facility] Jnisgkr9883-65-83 20:32:00* Test Item Value Reference Range Interpretation Comments Urine Ketones (test code = 01998-2) NEGATIVE NEGATIVE [facility] Center[facility] Easqweohfhtk9720-25-01 20:32:00* Test Item Value Reference Range Interpretation Comments Urine Urobilinogen (test code = 31230-6) 0.2 0.2-1 [facility] CenterU[facility] Lvmtcszhj4682-05-97 20:32:00* Test Item Value Reference Range Interpretation Comments Urine Bilirubin (test code = 1978-6) NEGATIVE NEGATIVE [facility] CenterU[facility] Hgvem9314-95-49 20:32:00* Test Item Value Reference Range Interpretation Comments Urine Blood (test code = 71755-8) NEGATIVE NEGATIVE [facility] CenterB-Type Natriuretic Ndmtlzk1733-83-24 19:38:00* Test Item Value Reference Range Interpretation Comments B-Type Natriuretic Peptide (test code = 52738-2) 76.1 0-100 [facility] CenterCreatine Kinase UC7582-85-50 19:38:00* Test Item Value Reference Range Interpretation Comments Creatine Kinase MB (test code = 65310-4) 2.10 0-5.0 [facility] Kfdav5144-55-12 19:15:00* Test Item Value Reference Range Interpretation Comments Sodium Level (test code = 2951-2) 140 136-145 [facility] CenterPotassium Oxxod9010-10-66 19:15:00* Test Item Value Reference Range Interpretation Comments Potassium Level (test code = 2823-3) 3.6 3.5-5.1 [facility] CenterChloride Lnpws5574-71-79 19:15:00* Test Item Value Reference Range Interpretation Comments Chloride Level (test code = 2075-0) 107 98-107 [facility] CenterCarbon Dioxide Zdpst2169-34-95 19:15:00* Test Item Value Reference Range Interpretation Comments Carbon Dioxide Level (test code = 2028-9) 23 22-29 [facility] CenterAnion Onx5596-41-92 19:15:00* Test Item Value Reference Range Interpretation Comments Anion Gap (test code = 96890-9) 13.6 8-16 [facility] CenterBlood Urea Wlvpibym5779-08-29 19:15:00* Test Item Value Reference Range Interpretation Comments Blood Urea Nitrogen (test code = 3094-0) 10 7-26 [facility] CenterCreatinine2018-09-09 19:15:00* Test Item Value Reference Range Interpretation Comments Creatinine (test code = 2160-0) 0.65 0.57-1.11 [facility] CenterBUN/Creatinine Tsxbl8593-55-39 19:15:00* Test Item Value Reference Range Interpretation Comments BUN/Creatinine Ratio (test code = 3097-3) 15 6-25 [facility] CenterEstimat Glomerular Filtration Rate 2018-01-04 19:15:00* Test Item Value Reference Range Interpretation Comments Estimat Glomerular Filtration Rate (test code = 05730-8) 60- >60 Ranges were taken from the National Kidney Disease Education Program and the [facility] literature.Reference ranges:60 or greater: Fnmwsp16-12 ( for 3 consecutive months): Chronic kidney disease 15 or less: Kidney failureThe [facility] at [facility] CenterGlucose Qbkfk1484-16-74 19:15:00* Test Item Value Reference Range Interpretation Comments Glucose Level (test code = XKQ0676) 79 74-118 [facility] CenterCalcium Tkqvk0334-63-17 19:15:00* Test Item Value Reference Range Interpretation Comments Calcium Level (test code = 48666-7) 9.5 8.4-10.2 [facility] CenterTotal Mdhmqzefo9955-92-10 19:15:00* Test Item Value Reference Range Interpretation Comments Total Bilirubin (test code = 1975-2) 0.4 0.2-1.2 [facility] CenterAspartate Amino Transf (AST/SGOT) 2018-01-04 19:15:00* Test Item Value Reference Range Interpretation Comments Aspartate Amino Transf (AST/SGOT) (test code = Aspartate Amino Transf (AST/SGOT)) 16 5-34 [facility] CenterAlanine Aminotransferase (ALT/SGPT) 2018-01-04 19:15:00* Test Item Value Reference Range Interpretation Comments Alanine Aminotransferase (ALT/SGPT) (test code = 1742-6) 14 0-55 [facility] CenterTotal Wsxxbtc6458-08-13 19:15:00* Test Item Value Reference Range Interpretation Comments Total Protein (test code = 2885-2) 6.5 6.5-8.1 [facility] CenterAlbumin2018-09-09 19:15:00* Test Item Value Reference Range Interpretation Comments Albumin (test code = 1751-7) 3.4 3.5-5.0 L [facility] CenterGlobulin2018-09-09 19:15:00* Test Item Value Reference Range Interpretation Comments Globulin (test code = 91879-6) 3.1 2.3-3.5 [facility] CenterAlbumin/Globulin Jdhjc2623-83-59 19:15:00 * Test Item Value Reference Range Interpretation Comments Albumin/Globulin Ratio (test code = 1759-0) 1.1 0.8-2.0 [facility] CenterAlkaline Inpjyvnlkvt3170-35-44 19:15:00* Test Item Value Reference Range Interpretation Comments Alkaline Phosphatase (test code = 6768-6) 78 40-150 [facility] CenterCreatine Umaucn1276-63-33 19:15:00* Test Item Value Reference Range Interpretation Comments Creatine Kinase (test code = 2157-6) 76 29-168 [facility] CenterAmylase Ctkpw1172-87-70 19:15:00* Test Item Value Reference Range Interpretation Comments Amylase Level (test code = 1798-8) 29 25-125 [facility] CenterLipase2018-09-09 19:15:00* Test Item Value Reference Range Interpretation Comments Lipase (test code = 3040-3) 16 8-78 [facility] CenterCHEST SINGLE (PORTABLE)2018-01-04 19:11:00 [facility] [address] [place] [address] Patient Name: TIA GARG MR #: [id number] : 1945 Age/Sex: 72/F Req #: [id number] [facility] Physician: Ordered by: BABAR OCONNOR NP Report #: [id number] Location: ER Room/Bed: Procedure: [id number] DX/CHEST SINGLE (PORTABLE) E xam Date: Exam Time: REPORT STATUS: Signed CHEST SINGLE (PORTABLE), 01/04/2018 6:14 PM Technique: CHEST SINGLE (PORTABL E) Comparison: 09/27/2016 Clinical history: Chest pain Findings: Limite d by portable technique and soft tissue attenuation. Stable appearance of the heart, mediastinum, lungs and pleural spaces. Impression: 1. Lines/Tubes: None 2. No acute abnormality. Signed by: Dr Cole Lira MD on 01/04/2018 7:13 PM Dictated By: COLE LIRA MD 12 Transcribed By: NHI on 01/04/181912 COPY TO: BABAR OCONNOR NP Prothrombin Ykxz5006-49-93 19:06:00* Test Item Value Reference Range Interpretation Comments Prothrombin Time (test code = 5902-2) 13.2 11.9-14.5 [facility] CenterProthromb Time International Ratio 2018-01-04 19:06:00* Test Item Value Reference Range Interpretation Comments Prothromb Time International Ratio (test code = 6301-6) 1.08 Oral Anticoagulant Therapy INR Values:1. Low Intensity Therapy 1.5 - 2.02 . Moderate Intensity Therapy 2.0 - 3.03. High Intensity Therapy(1) 2.5 - 3. 54. High Intensity Therapy(2) 3.0 - 4.05. Panic Value INR > 5.0 [facility] CenterActivated Partial Thromboplast Time 2018-01-04 19:06:00* Test Item Value Reference Range Interpretation Comments Activated Partial Thromboplast Time (test code = 76820-7) 28.1 23.8-35.5 [facility] CenterWhite Blood Orcfk0779-30-26 19:01:00* Test Item Value Reference Range Interpretation Comments White Blood Count (test code = 6690-2) 6.87 4.8-10.8 [facility] CenterRed Blood Kbchm5729-47-88 19:01:00* Test Item Value Reference Range Interpretation Comments Red Blood Count (test code = 789-8) 3.76 3.6-5.1 [facility] CenterHemoglobin2018-09-09 19:01:00* Test Item Value Reference Range Interpretation Comments Hemoglobin (test code = 46515-3) 11.1 12.0-16.0 L [facility] CenterHematocrit2018-09-09 19:01:00* Test Item Value Reference Range Interpretation Comments Hematocrit (test code = 4544-3) 34.1 34.2-44.1 L [facility] CenterMean Corpuscular Sjsoiq4134-18-44 19:01:00* Test Item Value Reference Range Interpretation Comments Mean Corpuscular Volume (test code = 787-2) 90.7 81-99 [facility] CenterMean Corpuscular Fqkhifgckp8418-51-84 19:01:00* Test Item Value Reference Range Interpretation Comments Mean Corpuscular Hemoglobin (test code = 785-6) 29.5 28-32 [facility] CenterMean Corpuscular Hemoglobin Concent 2018-01-04 19:01:00* Test Item Value Reference Range Interpretation Comments Mean Corpuscular Hemoglobin Concent (test code = 786-4) 32.6 31-35 [facility] CenterRed Cell Distribution Uhclk9067-88-19 19:01:00* Test Item Value Reference Range Interpretation Comments Red Cell Distribution Width (test code = 40787-4) 16.8 11.7 -14.4 H [facility] CenterPlatelet Emryc4480-90-86 19:01:00* Test Item Value Reference Range Interpretation Comments Platelet Count (test code = 777-3) 237 140-360 [facility] CenterNeutrophils (%) (Auto)2018-01-04 19:01:00 * Test Item Value Reference Range Interpretation Comments Neutrophils (%) (Auto) (test code = 50373-8) 54.6 38.7-80.0 [facility] CenterLymphocytes (%) (Auto)2018-01-04 19:01:00 * Test Item Value Reference Range Interpretation Comments Lymphocytes (%) (Auto) (test code = 736-9) 33.8 18.0-39.1 [facility] CenterMonocytes (%) (Auto)2018-01-04 19:01:00* Test Item Value Reference Range Interpretation Comments Monocytes (%) (Auto) (test code = 5905-5) 7.7 4.4-11.3 [facility] CenterEosinophils (%) (Auto)2018-01-04 19:01:00 * Test Item Value Reference Range Interpretation Comments Eosinophils (%) (Auto) (test code = 713-8) 3.2 0.0-6.0 [facility] CenterBasophils (%) (Auto)2018-01-04 19:01:00* Test Item Value Reference Range Interpretation Comments Basophils (%) (Auto) (test code = 706-2) 0.4 0.0-1.0 [facility] CenterIM GRANULOCYTES %2018-01-04 19:01:00* Test Item Value Reference Range Interpretation Comments IM GRANULOCYTES % (test code = IM GRANULOCYTES %) 0.3 0.0- 1.0 [facility] CenterNeutrophils # (Auto)2018-01-04 19:01:00* Test Item Value Reference Range Interpretation Comments Neutrophils # (Auto) (test code = 751-8) 3.8 2.1-6.9 [facility] CenterLymphocytes # (Auto)2018-01-04 19:01:00* Test Item Value Reference Range Interpretation Comments Lymphocytes # (Auto) (test code = 27931-5) 2.3 1.0-3.2 [facility] CenterMonocytes # (Auto)2018-01-04 19:01:00* Test Item Value Reference Range Interpretation Comments Monocytes # (Auto) (test code = 742-7) 0.5 0.2-0.8 [facility] CenterEosinophils # (Auto)2018-01-04 19:01:00* Test Item Value Reference Range Interpretation Comments Eosinophils # (Auto) (test code = 711-2) 0.2 0.0-0.4 [facility] CenterBasophils # (Auto)2018-01-04 19:01:00* Test Item Value Reference Range Interpretation Comments Basophils # (Auto) (test code = 704-7) 0.0 0.0-0.1 [facility] CenterAbsolute Immature Granulocyte (auto 2018-01-04 19:01:00* Test Item Value Reference Range Interpretation Comments Absolute Immature Granulocyte (auto (raeann t code = Absolute Immature Granulocyte (auto) 0.02 0-0.1 [facility]
== END 2020-01-04 17:55 | disposition home or self-care (01) ==
LOC: ER 17:55
DX: R41.0 Disorientation, unspecified (principal); I10 Essential (primary) hypertension; M32.9 Systemic lupus erythematosus, unspecified; I50.9 Heart failure, unspecified; K21.9 Gastro-esophageal reflux disease without esophagitis
CPT/HCPCS: 36415; 70450; 80053; 81001; 82550; 82553; 84484; 85025; 85610; 85730; 87086; 93005; 99284; J7030

== ENCOUNTER 2020-12-15 04:15 | Emergency (ER) | payer MEDICARE ==
[~2020-12-15] VITALS: Ht 271.8 cm; Wt 68.0 kg
[2020-12-15] MEDS ORDERED: HYDRALAZINE HCL 20 MG/ML VIAL IV STA (04:31)
[2020-12-15 04:48] LABS: BASOPHILS % 0.6 % (0.0-1.0); EOSINOPHILS # (AUTO) 0.2 (0.0-0.4); EOSINOPHILS % 3.1 % (0.0-6.0); HEMATOCRIT 26.4 % (34.2-44.1); HEMOGLOBIN 7.6 g/dL (12.0-16.0); LYMPHOCYTES # (AUTO) 1.4 (1.0-3.2); LYMPHOCYTES % 20.9 % (18.0-39.1); MEAN CORPUSCULAR HEMOGLOBIN 21.4 pg (28-32); MEAN CORPUSCULAR HGB CONC 28.8 g/dL (31-35); MEAN CORPUSCULAR VOLUME 74.4 fL (81-99); MONOCYTES # (AUTO) 0.4 (0.2-0.8); MONOCYTES % 6.2 % (4.4-11.3); NEUTROPHILS # (AUTO) 4.7 (2.1-6.9); NEUTROPHILS % 68.9 % (38.7-80.0); PLATELET COUNT 281 x10e3/uL (140-360); RED BLOOD COUNT 3.55 x10e6/uL (3.6-5.1); RED CELL DISTRIBUTION WIDTH 19.3 % (11.7-14.4)
[2020-12-15 05:05] LABS: ALBUMIN 3.6 g/dL (3.5-5.0); ALBUMIN/GLOBULIN RATIO 1.1 (0.8-2.0); ANION GAP 15.8 mmol/L (8-16); CALCIUM 9.2 mg/dL (8.4-10.2); CREATININE, SERUM 0.93 mg/dL (0.57-1.11); POTASSIUM 3.8 mmol/L (3.5-5.1)
[2020-12-15 05:12] LABS: CREATINE KINASE MB 2.8 ng/mL (0-5.0)
[2020-12-15] MEDS ORDERED: ONDANSETRON HCL INJ 2MG/ML 2ML 2 MG/ML VIAL ONE (05:24)
[2020-12-15 06:31] LABS: CLARITY,URINE HAZY (CLEAR); COLOR,URINE YELLOW (YELLOW); LEUKOCYTE ESTERASE ,URINE NEGATIVE (NEGATIVE); NITRITE,URINE POSITIVE (NEGATIVE); PROTEIN,URINE DIPSTICK NEGATIVE (NEGATIVE)
[2020-12-15 06:33] LABS: KETONES,URINE NEGATIVE (NEGATIVE); URINE UROBILINOGEN 0.2 mg/dL (0.2 - 1)
[2020-12-15 07:04] LABS: BACTERIA,URINE MANY /HPF; EPITHELIAL CELLS,URINE FEW /LPF; RBC,URINE 0-5 /HPF (0-5); WBC,URINE (MAN) 21-50 /HPF (0-5)
[2020-12-15] MEDS ORDERED: CEPHALEXIN500 M1 PO ×2 (07:09→07:13)
[2020-12-15 09:07] VITALS: BP 142/101
== END 2020-12-15 09:08 | disposition home or self-care (01) ==
LOC: ER 04:30
DX: N39.0 Urinary tract infection, site not specified (principal); I10 Essential (primary) hypertension; Z88.1 Allergy status to other antibiotic agents
CPT/HCPCS: 36415; 70450; 71045; 80053; 81001; 82550; 82553; 84484; 85025; 99284; J2405